=== PATIENT | female | born 1955 | race Caucasian/White ===

== ENCOUNTER 2022-03-01 10:05 | Outpatient (REF) | payer MEDICARE, SELFPAY ==
--- NOTE | ~2022-03-01 | XR_ITS ---
EXAMINATION: XR BILATERAL HAND/WRIST, BILATERAL ANKLE, CERVICAL SPINE AND LEFT KNEE CLINICAL INFORMATION: Pain. COMPARISON: None. TECHNIQUE: 2 views each ankle, 4 views each hand/wrist, 2 views left knee and 3 views cervical spine. FINDINGS: RIGHT ANKLE: The ankle mortise and subtalar joints are normal. No visible acute fracture, dislocation or subluxation seen. The soft tissues are normal. LEFT ANKLE: The ankle mortise and subtalar joints are normal. No visible acute fracture, dislocation or subluxation seen. LEFT HAND/WRIST: There is mild reduction in the proximal interphalangeal and distal interphalangeal joints of all digits without bony erosive changes, fracture or loose bodies. The metacarpophalangeal joint and carpometacarpal joints and the intercarpal joints are maintained normal. There is old ulnar styloid process fracture. RIGHT HAND/WRIST: There is mild loss of proximal interphalangeal and distal interphalangeal joints in all digits without fracture, bony erosive changes or spurring. The metacarpophalangeal, carpometacarpal and intercarpal joint spaces are maintained normal. The soft tissues are normal. LEFT KNEE: The tricompartment joint space is slightly reduced with no bony erosive changes, loose bodies, fracture or joint effusion. There is a small anterior superior patellar enthesophyte. CERVICAL SPINE: There is maintained cervical lordosis. There is loss of C4-C5, C5-C6, C6-C7 and C7-T1 disc heights with moderate ventral spondylosis and mild posterior spondylosis. No visible acute fracture or dislocation seen. The prevertebral soft tissues are normal. XR/XR hand wrist LT IMPRESSION: Unremarkable bilateral ankle exam. Mild degenerative osteoarthritic changes proximal interphalangeal and distal interphalangeal joints of both hands. Old ulnar styloid process fracture left hand/wrist. Mild degenerative changes left knee without fracture, loose bodies or joint effusion. Degenerative disc changes with ventral spondylosis C4-C5, C5-C6, C6-C7 and C7-T1 disc levels.
--- NOTE | ~2022-03-01 | XR_ITS ---
EXAMINATION: XR BILATERAL HAND/WRIST, BILATERAL ANKLE, CERVICAL SPINE AND LEFT KNEE CLINICAL INFORMATION: Pain. COMPARISON: None. TECHNIQUE: 2 views each ankle, 4 views each hand/wrist, 2 views left knee and 3 views cervical spine. FINDINGS: RIGHT ANKLE: The ankle mortise and subtalar joints are normal. No visible acute fracture, dislocation or subluxation seen. The soft tissues are normal. LEFT ANKLE: The ankle mortise and subtalar joints are normal. No visible acute fracture, dislocation or subluxation seen. LEFT HAND/WRIST: There is mild reduction in the proximal interphalangeal and distal interphalangeal joints of all digits without bony erosive changes, fracture or loose bodies. The metacarpophalangeal joint and carpometacarpal joints and the intercarpal joints are maintained normal. There is old ulnar styloid process fracture. RIGHT HAND/WRIST: There is mild loss of proximal interphalangeal and distal interphalangeal joints in all digits without fracture, bony erosive changes or spurring. The metacarpophalangeal, carpometacarpal and intercarpal joint spaces are maintained normal. The soft tissues are normal. LEFT KNEE: The tricompartment joint space is slightly reduced with no bony erosive changes, loose bodies, fracture or joint effusion. There is a small anterior superior patellar enthesophyte. CERVICAL SPINE: There is maintained cervical lordosis. There is loss of C4-C5, C5-C6, C6-C7 and C7-T1 disc heights with moderate ventral spondylosis and mild posterior spondylosis. No visible acute fracture or dislocation seen. The prevertebral soft tissues are normal. XR/XR cervical spine 2V IMPRESSION: Unremarkable bilateral ankle exam. Mild degenerative osteoarthritic changes proximal interphalangeal and distal interphalangeal joints of both hands. Old ulnar styloid process fracture left hand/wrist. Mild degenerative changes left knee without fracture, loose bodies or joint effusion. Degenerative disc changes with ventral spondylosis C4-C5, C5-C6, C6-C7 and C7-T1 disc levels.
--- NOTE | ~2022-03-01 | XR_ITS ---
EXAMINATION: XR BILATERAL HAND/WRIST, BILATERAL ANKLE, CERVICAL SPINE AND LEFT KNEE CLINICAL INFORMATION: Pain. COMPARISON: None. TECHNIQUE: 2 views each ankle, 4 views each hand/wrist, 2 views left knee and 3 views cervical spine. FINDINGS: RIGHT ANKLE: The ankle mortise and subtalar joints are normal. No visible acute fracture, dislocation or subluxation seen. The soft tissues are normal. LEFT ANKLE: The ankle mortise and subtalar joints are normal. No visible acute fracture, dislocation or subluxation seen. LEFT HAND/WRIST: There is mild reduction in the proximal interphalangeal and distal interphalangeal joints of all digits without bony erosive changes, fracture or loose bodies. The metacarpophalangeal joint and carpometacarpal joints and the intercarpal joints are maintained normal. There is old ulnar styloid process fracture. RIGHT HAND/WRIST: There is mild loss of proximal interphalangeal and distal interphalangeal joints in all digits without fracture, bony erosive changes or spurring. The metacarpophalangeal, carpometacarpal and intercarpal joint spaces are maintained normal. The soft tissues are normal. LEFT KNEE: The tricompartment joint space is slightly reduced with no bony erosive changes, loose bodies, fracture or joint effusion. There is a small anterior superior patellar enthesophyte. CERVICAL SPINE: There is maintained cervical lordosis. There is loss of C4-C5, C5-C6, C6-C7 and C7-T1 disc heights with moderate ventral spondylosis and mild posterior spondylosis. No visible acute fracture or dislocation seen. The prevertebral soft tissues are normal. XR/XR hand wrist RT IMPRESSION: Unremarkable bilateral ankle exam. Mild degenerative osteoarthritic changes proximal interphalangeal and distal interphalangeal joints of both hands. Old ulnar styloid process fracture left hand/wrist. Mild degenerative changes left knee without fracture, loose bodies or joint effusion. Degenerative disc changes with ventral spondylosis C4-C5, C5-C6, C6-C7 and C7-T1 disc levels.
[2022-03-01 10:28] LABS: MANUAL DIFF FLAG NO
[2022-03-01 11:01] LABS: Basophils Absolute Auto 0.1 X10*3/uL (0.0-0.2); Basophils Percent Auto 1.2 % (0-2); Eosinophils Absolute Auto 0.3 X10*3/uL (0.0-0.4); Eosinophils Percent Auto 4.1 % (0-4); Hematocrit 40.5 % (37.0-47.0); Hemoglobin 13.3 g/dl (12.0-16.0); Imm Gran Abs Auto 0.02 X10*3/uL (0.00-0.03); Imm Gran Pct Auto 0.2 % (0.0-0.4); Lymphocytes Absolute Auto 2.6 X10*3/uL (1.2-4.9); Lymphocytes Percent Auto 32.3 % (20-40); Mean Corpuscular HGB Conc 32.8 g/dl (31.0-35.0); Mean Corpuscular Hemoglobin 28.1 pg (27.0-33.0); Mean Corpuscular Volume 85.4 fL (80.0-98.0); Mean Platelet Volume 9.1 fL (9.4-12.3); Monocytes Absolute Auto 0.7 X10*3/uL (0.1-1.2); Monocytes Percent Auto 9.1 % (2-11); Neutrophils Absolute Auto 4.3 x10*3/uL (2.0-8.3); Neutrophils Percent Auto 53.1 % (45-73); Platelet Count 403 X10*3/uL (160-400); Red Blood Count 4.74 X10*6/uL (4.20-5.50); Red Cell Distribution Width 13.7 % (11.0-16.0)
[2022-03-01 11:28] LABS: Alanine Aminotransferase 26 U/L (0-31); Albumin Level 4.4 g/dL (3.5-5.0); Alkaline Phosphatase 98 U/L (39-117); Anion Gap 14 (12-20); Aspartate Amino Transferase 23 U/L (5-31); Bilirubin Total 0.2 mg/dL (0.0-1.0); Blood Urea Nitrogen 13 mg/dL (9-16); Calcium 9.5 mg/dL (8.4-10.2); Carbon Dioxide 29 mmol/L (22-29); Chloride 103 mmol/L (96-108); Cholesterol 213 mg/dL; Estimated Glomerular Filt Rate > 60; Glucose Random 115 mg/dL (60-115); HDL Cholesterol 55 mg/dL; LDL Cholesterol Calculated 113 mg/dl; Potassium 4.3 mmol/L (3.3-5.1); Sodium 142 mmol/L (135-145); Total Protein 7.6 g/dL (6.5-8.0); Triglycerides 228 mg/dL
[2022-03-01 11:50] LABS: Free T4 (Free Thyroxine) 0.87 ng/dL (0.71-1.85); Vitamin D 25-OH Total 50.7 ng/mL (>30)
[2022-03-01 11:53] LABS: Erythrocyte Sedimentation Rate 25 MM/HR (0-20)
[2022-03-01 12:11] LABS: Folate > 20.0 ng/mL (> or = 4.0); Vitamin B12 959 pg/mL (200-900)
== END 2022-03-01 10:06 | disposition home or self-care (01) ==
LOC: HO.XRAY 10:05
PROVIDERS: PCP Internal Medicine; Visit Provider Internal Medicine
DX: M25.50 Pain in unspecified joint (principal); E78.00 Pure hypercholesterolemia, unspecified
CPT/HCPCS: 36415; 72040; 73110; 73130; 73560; 73600; 80053; 80061; 82306; 82607; 82746; 84439; 84443; 85025; 85652

== ENCOUNTER 2022-03-23 12:47 | Outpatient (REF) | payer MEDICARE, SELFPAY ==
--- NOTE | ~2022-03-23 | MM_ITS ---
EXAMINATION: MM SCREENING DIGITAL BREAST TOMOSYNTHESIS, BILATERAL CLINICAL INFORMATION: Screening. Asymptomatic. The lifetime risk of breast cancer based on the Tyrer-Cuzick Model is 6%. COMPARISON: Mammography: 03/31/2019, 03/26/2018, 03/01/2017 TECHNIQUE: Digital breast tomosynthesis is performed in both the craniocaudal and mediolateral oblique views along with computer-aided detection (CAD). Synthesized 2D images are generated from the tomosynthesis. FINDINGS: There are scattered areas of fibroglandular density (ACR BI-RADS breast composition Category b). There are no significant masses, abnormal calcifications, or other abnormalities. Parenchymal pattern is similar to prior studies. There is no developing density or architectural abnormality. The axilla and skin contours are unremarkable. No significant changes. MM/MM tomosynthesis screening BI IMPRESSION: No mammographic evidence of malignancy. ASSESSMENT: BI-RADS 1: Negative RECOMMENDATION: Routine annual mammography screening. This patient's information was entered into a reminder system with a target due date for their next mammogram.
--- NOTE | ~2022-03-23 | MM_ITS ---
EXAMINATION: BONE DENSITOMETRY CLINICAL INDICATION: Age-related osteoporosis without current pathological fracture. COMPARISON: Previous BD dated 03/04/2019 and baseline BD dated 12/13/2007. TECHNIQUE: Using a [employer] DXA System (software version: 13.1) manufactured by [employer], dual-energy x-ray absorptiometry was performed of the lumbar spine and left hip. The images are of good technical quality. Summary results are attached. FINDINGS: AP SPINE L1-L4: Current: BMD 1.194 g/cm2, Z-score 1.4, T-score 0.1, normal, 5.8% decrease from previous, 8.8% increase from baseline (<5% change is not significant). Prior: BMD 1.268 g/cm2. Baseline: BMD 1.097 g/cm2. LEFT FEMUR, NECK: Current: BMD 0.707 g/cm2, Z-score -1.0, T-score -2.4, osteopenia. Prior: BMD 0.732 g/cm2. Baseline: BMD 0.712 g/cm2. LEFT FEMUR, TOTAL: Current: BMD 0.879 g/cm2, Z-score 0.1, T-score -1.0, normal, 1.3% decrease from previous, 2.6% increase from baseline (<5% change is not significant). Prior: BMD 0.891 g/cm2. Baseline: BMD 0.857 g/cm2. IDENTIFIED RISK FACTORS: Menopause. HISTORY OF FRACTURE: None listed. MEDICATIONS: Calcium supplements or multivitamin, vitamin D. MM/XR DEXA axial skeleton IMPRESSION: 1. DIAGNOSIS: Osteopenia based on the lowest T-score value of -2.4 in the femoral neck applying World Health Organization criteria. 2. 10-YEAR FRACTURE RISK PREDICTION, FRAX: Major osteoporotic fracture (clinical spine, forearm, hip or shoulder) 13.3%. Hip fracture 2.8%. 3. Treatment Recommendations: NOF guidelines recommend consideration for treatment in postmenopausal women and men age 50 and older presenting with the following: -A hip or vertebral (clinical or morphometric) fracture. -T-score less than or equal to -2.5 at the femoral neck or spine after appropriate evaluation to exclude secondary causes. -Low bone mass at the hip or spine and a 10-year fracture probability by FRAX of greater than or equal to 3% for hip fracture or greater than or equal to 20% for major osteoporotic fracture based on the [place] adapted WHO algorithm. 4. Other Recommendations: All treatment decisions require clinical judgment and consideration of individual patient factors, including patient preferences, comorbidities, previous drug use, risk factors not captured in the FRAX model (e.g. frailty, falls, vitamin D deficiency, increased bone turnover, interval significant decline in bone density) and possible under or overestimation of fracture risk by FRAX. Additional medical evaluation for secondary cause of low bone mineral density may be appropriate. FUTURE SCAN RECOMMENDATION: People with diagnosed cases of osteoporosis or at high risk for fracture should have regular bone mineral density tests. For patients eligible for Medicare, routine testing is allowed once every 2 years. The testing frequency can be increased to one year for patients who have rapidly progressing disease, those who are receiving or discontinuing medical therapy to restore bone mass, or have additional risk factors.
== END 2022-03-23 12:48 | disposition home or self-care (01) ==
LOC: HO.MAMMO 12:47
PROVIDERS: PCP Internal Medicine; Visit Provider Internal Medicine
DX: Z12.31 Encounter for screening mammogram for malignant neoplasm of breast (principal); Z13.820 Encounter for screening for osteoporosis; M81.0 Age-related osteoporosis without current pathological fracture; M85.80 Other specified disorders of bone density and structure, unspecified site; Z78.0 Asymptomatic menopausal state
CPT/HCPCS: 77063; 77067; 77080

== ENCOUNTER 2022-12-06 10:40 | Outpatient (REF) | payer MEDICARE, SELFPAY ==
[2022-12-07 19:43] LABS: HPV mRNA E6/E7 rflx Not Detected (Not Detected)
== END 2022-12-06 10:41 | disposition home or self-care (01) ==
LOC: HO.LNP 10:40
PROVIDERS: PCP Internal Medicine; Visit Provider Advanced Practice Midwife
DX: Z01.419 Encounter for gynecological examination (general) (routine) without abnormal findings (principal); Z11.51 Encounter for screening for human papillomavirus (HPV)
CPT/HCPCS: 87624; 88142; G0101

== ENCOUNTER 2022-12-15 08:34 | Outpatient (REF) | payer MEDICARE, SELFPAY ==
[2022-12-15 09:28] LABS: Estimated Average Glucose 108 mg/dL; Hemoglobin A1c % 5.4 %
[2022-12-15 09:48] LABS: Alanine Aminotransferase 29 U/L (0-31); Albumin Level 4.3 g/dL (3.5-5.0); Alkaline Phosphatase 113 U/L (39-117); Anion Gap 14 (12-20); Aspartate Amino Transferase 21 U/L (5-31); Bilirubin Total 0.6 mg/dL (0.0-1.0); Blood Urea Nitrogen 14 mg/dL (9-16); Calcium 9.5 mg/dL (8.4-10.2); Carbon Dioxide 26 mmol/L (22-29); Chloride 106 mmol/L (96-108); Cholesterol 212 mg/dL; Estimated Glomerular Filt Rate > 60; Glucose Random 98 mg/dL (60-115); HDL Cholesterol 53 mg/dL; LDL Cholesterol Calculated 126 mg/dl; Potassium 4.2 mmol/L (3.3-5.1); Sodium 142 mmol/L (135-145); Total Protein 7.2 g/dL (6.5-8.0); Triglycerides 169 mg/dL
== END 2022-12-15 08:35 | disposition home or self-care (01) ==
LOC: HO.LAB 08:34
PROVIDERS: PCP Internal Medicine; Visit Provider Internal Medicine
DX: R73.9 Hyperglycemia, unspecified (principal); E78.1 Pure hyperglyceridemia; E78.00 Pure hypercholesterolemia, unspecified
CPT/HCPCS: 36415; 80053; 80061; 83036

== ENCOUNTER 2022-12-25 06:21 | Day surgery (SDC) | payer MEDICARE, SELFPAY ==
--- NOTE | 2022-05-19 11:00 | HO.ANESPROP2 ---
HPI - Anesthesia Eval Consult details Narrative: 66yo F for Colonoscopy PMFSH Active Problems Active Problems: All Active Problems (Updated 03/07/22 @ 19:36 by Catalina Russo MD) Osteoarthritis (Acute) Cervical cancer screening (Acute) Tinnitus (Acute) Joint pain (Acute) Generalized anxiety disorder (Acute) Tubular adenoma of colon (Acute) Annual physical exam (Acute) Hyperhidrosis (Acute) Osteopenia (Acute) Breast cancer screening by mammogram (Acute) Hypercholesterolemia (Acute) Past Medical History Medical History (Updated 03/07/22 @ 19:36 by Catalina Russo MD) Allergic rhinitis Anxiety and depression Atrophic vaginitis History of GI bleed Hypercholesterolemia Osteopenia Family History Family History (Updated 02/28/22 @ 13:17 by Catalina Russo MD) Father Myocardial infarct Mother CVA (cerebral vascular accident), Onset Age: 82 Surgical History Surgical History (Updated 02/28/22 @ 13:03 by JESS Davis) No pertinent past surgical history Social History Social History (Updated 02/28/22 @ 13:18 by Catalina Russo MD) Housing: House Alcohol intake: current Alcohol intake frequency: a few times a week Patient Tobacco Use Status: Former Tobacco user Tobacco use type: Cigarette Years Smoked: stopped 1979 e-Cigarette/Vaping Use: Never Used Second Hand Smoke Exposure: No service: No Current occupational status: retired Current occupational exposures/hazards: No Meds Allergies Allergy/AdvReac Type Severity Reaction Status Date / Time ibuprofen Allergy Unknown Unknown Verified 02/28/22 12:56 naproxen Allergy Unknown Unknown Verified 02/28/22 12:56 12 Hour Nasal Relief [place] Allergy Unknown Unknown Uncoded 02/28/22 12:56 Voltaren Allergy Unknown Unknown Uncoded 02/28/22 12:56 Home Medications Medication Instructions Recorded Confirmed Last Taken Type cholecalciferol (vitamin D3) 25 25 mcg PO DAILY 02/24/21 02/28/22 Unknown History mcg (1,000 unit) capsule multivitamin 1 tab PO DAILY 02/24/21 02/28/22 Unknown History fexofenadine 180 mg tablet 180 mg PO DAILY 02/28/22 02/28/22 Unknown History (Cheryl Allergy) pseudoephedrine HCl 120 mg 120 mg PO Q12H 02/28/22 02/28/22 Unknown History tablet,extended release (Sudafed 12 Hour) Exam Exam Date and Time: May 19, 2022 1100 Pertinent Lab Results Pertinent Lab Results: Laboratory Tests 03/01/22 03/01/22 10:27 10:27 WBC 8.0 Hgb 13.3 Hct 40.5 Plt Count 403 H Sodium 142 Potassium 4.3 Chloride 103 Carbon Dioxide 29 BUN 13 Creatinine 0.78 Assessment and Plan Assessment Anesthesia Assessment: Chart Reviewed
--- NOTE | 2022-12-22 11:55 | HO.ANESPROP2 ---
HPI - Anesthesia Eval Consult details Narrative: 67yo F for Colonoscopy PMFSH Active Problems Active Problems: All Active Problems (Updated 12/18/22 @ 10:44 by Catalina Russo MD) Overweight (BMI 25.0-29.9) (Acute) Hypertriglyceridemia (Acute) Elevated blood sugar (Acute) Osteoarthritis (Acute) Cervical cancer screening (Acute) Tinnitus (Acute) Joint pain (Acute) Generalized anxiety disorder (Acute) Tubular adenoma of colon (Acute) Annual physical exam (Acute) Hyperhidrosis (Acute) Osteopenia (Acute) Hypercholesterolemia (Acute) Past Medical History Medical History Allergic rhinitis Anxiety and depression Atrophic vaginitis Breast cancer screening by mammogram History of GI bleed Hypercholesterolemia Osteopenia Family History Family History Father Myocardial infarct Mother CVA (cerebral vascular accident), Onset Age: 82 Surgical History Surgical History No pertinent past surgical history Social History Social History Household Members Other:: Housing: House Alcohol intake: current Alcohol intake frequency: a few times a week Patient Tobacco Use Status: Former Tobacco user Tobacco use type: Cigarette Years Smoked: stopped 1979 e-Cigarette/Vaping Use: Never Used Second Hand Smoke Exposure: No Are you DNR?: No Advance Directives: No Advance Directives Information Provided: Yes Nutrition Risks: No Nutritional Risk service: No Current occupational status: retired Current occupational exposures/hazards: No Sexual orientation: Straight/Heterosexual Gender identity: Female Cognitive needs: No Hearing needs: No Vision needs: No Meds Allergies Allergy/AdvReac Type Severity Reaction Status Date / Time ibuprofen Allergy Unknown Unknown Verified 12/25/22 07:00 naproxen Allergy Unknown Unknown Verified 12/25/22 07:00 12 Hour Nasal Relief [place] Allergy Unknown Unknown Uncoded 12/25/22 07:00 Voltaren Allergy Unknown Unknown Uncoded 12/25/22 07:00 Home Medications Medication Instructions Recorded Confirmed Last Taken Type cholecalciferol (vitamin D3) 25 25 mcg PO DAILY 02/24/21 12/25/22 Unknown History mcg (1,000 unit) capsule multivitamin 1 tab PO DAILY 02/24/21 12/25/22 Unknown History fexofenadine 180 mg tablet 180 mg PO DAILY 02/28/22 12/25/22 Unknown History (Cheryl Allergy) pseudoephedrine HCl 120 mg 120 mg PO Q12H 02/28/22 12/25/22 Unknown History tablet,extended release (Sudafed 12 Hour) Exam Exam Date and Time: December 22, 2022 1155 Assessment and Plan Assessment Anesthesia Assessment: Chart Reviewed
[2022-12-25 06:43] VITALS: BMI 28.3
[2022-12-25] MEDS: Lactated Ringers 1,000 ML 100 ML IVCONT (06:50)
[2022-12-25 07:01] VITALS: BP 134/84; PULSE 95; RESP 18; TEMP 36.6; O2SAT 96
--- NOTE | 2022-12-25 07:58 | HO.ANESPROP2 ---
HPI - Anesthesia Eval Consult details Narrative: screening ho polyp PMFSH Active Problems Active Problems: All Active Problems (Updated 12/18/22 @ 10:44 by Catalina Russo MD) Overweight (BMI 25.0-29.9) (Acute) Hypertriglyceridemia (Acute) Elevated blood sugar (Acute) Osteoarthritis (Acute) Cervical cancer screening (Acute) Tinnitus (Acute) Joint pain (Acute) Generalized anxiety disorder (Acute) Tubular adenoma of colon (Acute) Annual physical exam (Acute) Hyperhidrosis (Acute) Osteopenia (Acute) Hypercholesterolemia (Acute) Past Medical History Medical History Allergic rhinitis Anxiety and depression Atrophic vaginitis Breast cancer screening by mammogram History of GI bleed Hypercholesterolemia Osteopenia Family History Family History Father Myocardial infarct Mother CVA (cerebral vascular accident), Onset Age: 82 Family history of problems with anesthesia: No Surgical History Surgical History No pertinent past surgical history History of Problems with Anesthesia: No Social History Social History Household Members Other:: Housing: House Alcohol intake: current Alcohol intake frequency: a few times a week Patient Tobacco Use Status: Former Tobacco user Tobacco use type: Cigarette Years Smoked: stopped 1979 e-Cigarette/Vaping Use: Never Used Second Hand Smoke Exposure: No Are you DNR?: No Advance Directives: No Advance Directives Information Provided: Yes Nutrition Risks: No Nutritional Risk service: No Current occupational status: retired Current occupational exposures/hazards: No Sexual orientation: Straight/Heterosexual Gender identity: Female Cognitive needs: No Hearing needs: No Vision needs: No Meds Allergies Allergy/AdvReac Type Severity Reaction Status Date / Time ibuprofen Allergy Unknown Unknown Verified 12/25/22 07:00 naproxen Allergy Unknown Unknown Verified 12/25/22 07:00 12 Hour Nasal Relief [place] Allergy Unknown Unknown Uncoded 12/25/22 07:00 Voltaren Allergy Unknown Unknown Uncoded 12/25/22 07:00 Active Medications: Current Medications Lactated Ringer's (Lr) 1,000 mls @ 100 mls/hr IVCONT .Q10H ZOILA Last Admin: 12/25/22 06:50 Dose: 100 mls/hr Sodium Biphosphate/Sodium Phosphate (Sodium Phosphate,[place]-Dibasic 133 Ml Enema) 133 ml [place] ONCE PRN PRN Reason: Poor Colonoscopy Prep Results Home Medications Medication Instructions Recorded Confirmed Last Taken Type cholecalciferol (vitamin D3) 25 25 mcg PO DAILY 02/24/21 12/25/22 Unknown History mcg (1,000 unit) capsule multivitamin 1 tab PO DAILY 02/24/21 12/25/22 Unknown History fexofenadine 180 mg tablet 180 mg PO DAILY 02/28/22 12/25/22 Unknown History (Cheryl Allergy) pseudoephedrine HCl 120 mg 120 mg PO Q12H 02/28/22 12/25/22 Unknown History tablet,extended release (Sudafed 12 Hour) Exam Exam Date and Time: December 25, 2022 5198 Height,Weight and Vital Signs: Height 5 ft 4 in Weight 74.843 kg Last Vital Signs Temp 97.9 F 12/25/22 07:01 Pulse 95 12/25/22 07:01 Resp 18 12/25/22 07:01 BP 134/84 12/25/22 07:01 Pulse Ox 96 12/25/22 07:01 O2 Del Method Room Air 12/25/22 07:01 Airway Mallampati Class: I TM Dist: >3cm Neck ROM: Full Loose/Missing/Broken Teeth: No Heart: rr Lungs: cta Assessment and Plan Assessment Anesthesia Assessment: Anesthesia Plan Discussed and Chart Reviewed Final Anesthetic Review Family History of Problems with Anesthesia: No History of Problems with Anesthesia: No NPO: Yes ASA Class: II Final Preanesthetic Review: No Changes in Pt Med Stat, Meds/Allgs Chart Reviewed, Consent Obtained/Reviewed and Anes Risks/Benef Reviewed Patient Risk: Low Procedure Risk: Low Anesthetic Plan Anesthetic Plan: MAC: Disposition: Standard PACU
[2022-12-25 08:33] VITALS: BP 115/65; PULSE 80; RESP 18; TEMP 36.3; O2SAT 93
--- NOTE | 2022-12-25 08:35 | P.BOP_ITS ---
Brief Operative Note Date of Service: 12/25/22 Pre-op diagnosis: Screening Post-op diagnosis: other (Polyps) Procedure: Colonoscopy to the cecum and TI with bx/removal of polyps Surgeon: Jr Palomino Anesthesia: MAC Was an Heavy Equipment Engine Mechanic used for this Procedure?: No Estimated blood loss (mL): 2.0 Pathology: other (A. Ascending colon polyps) Condition: stable Disposition: PACU
[2022-12-25 08:48] VITALS: BP 129/77; PULSE 75; RESP 16; TEMP 36.6; O2SAT 97
--- NOTE | 2022-12-25 09:35 | OP_ITS ---
DATE OF SERVICE: 12/25/2022 SURGEON: Jr Palomino MD INDICATIONS: The patient presents for evaluation of colorectal cancer screening and personal history of tubular adenomas of the colon. Full consent has been obtained from her for this, including risks of bleeding and perforation. PREOPERATIVE DIAGNOSIS: Colorectal cancer screening and personal history of tubular adenomas of the colon. POSTOPERATIVE DIAGNOSIS: PROCEDURE PERFORMED: Colonoscopy to cecum and terminal ileum with biopsy and removal of polyps. ESTIMATED BLOOD LOSS: COMPLICATIONS: ANESTHESIA: Monitored anesthesia care. ASSISTANTS: SPECIMENS: POSTOPERATIVE DIAGNOSES: Colorectal cancer screening and personal history of tubular adenomas of the colon, colon polyps, diverticulosis, and internal hemorrhoids. DESCRIPTION OF PROCEDURE: The patient was placed in the left lateral decubitus position the digital rectal exam revealed no abnormalities. The Olympus video pediatric colonoscope was entered into the rectum and advanced easily to the cecum. Once in the cecum I did identify normal-appearing cecal pouch with appendiceal orifice and a normal-appearing ileocecal valve. The terminal ileum was cannulated and appeared normal. The scope was withdrawn back in the colon. The entire cecum and ileocecal valve appeared normal. The scope was slowly withdrawn assessing all mucosal surfaces carefully. Preparation was excellent. In the proximal ascending colon were 2 flat less than 5 mm polyps, which were each biopsied and completely removed with a cold biopsy forceps. I did not visualize any other polyps, colitis, nor angiodysplasia. There was a mild amount of sigmoid diverticulosis. In the rectum, scope was retroflexed visualizing internal hemorrhoids, but no other pathology. The rectal mucosa appeared normal. Scope was straightened and withdrawn from the patient. She tolerated the procedure well and was returned to the recovery area in stable condition. IMPRESSION: 1. Small colon polyps. 2. Diverticulosis. 3. Internal hemorrhoids. PLAN: The results of the biopsies will be checked. I would recommend a repeat colonoscopy in 5 years for further screening. She will otherwise see me on a p.r.n. basis. MD LEE Roque/ROHAN / [id number] MTDD
== END 2022-12-25 09:16 | disposition home or self-care (01) ==
PROVIDERS: PCP Internal Medicine; Visit Provider Internal Medicine
PROC: 0DJD8ZZ Inspection of Lower Intestinal Tract, Via Natural or Artificial Opening Endoscopic (ICD-10-PCS; CPT 45378; principal; 2022-12-25 07:30)
DX: Z12.11 Encounter for screening for malignant neoplasm of colon (principal); Z86.010 Personal history of colon polyps; D12.2 Benign neoplasm of ascending colon; K57.30 Diverticulosis of large intestine without perforation or abscess without bleeding; K64.8 Other hemorrhoids; E78.00 Pure hypercholesterolemia, unspecified; F41.1 Generalized anxiety disorder; M47.9 Spondylosis, unspecified; M15.9 Polyosteoarthritis, unspecified; M85.80 Other specified disorders of bone density and structure, unspecified site; Z79.899 Other long term (current) drug therapy; Z88.8 Allergy status to other drugs, medicaments and biological substances; Z87.891 Personal history of nicotine dependence
CPT/HCPCS: 45380; 88305

== ENCOUNTER 2023-02-09 07:31 | Outpatient (REF) | payer MEDICARE, SELFPAY ==
[2023-02-09 07:43] LABS: MANUAL DIFF FLAG NO
[2023-02-09 08:24] LABS: Basophils Absolute Auto 0.1 X10*3/uL (0.0-0.2); Basophils Percent Auto 1.2 % (0-2); Eosinophils Absolute Auto 0.2 X10*3/uL (0.0-0.4); Eosinophils Percent Auto 3.4 % (0-4); Hematocrit 40.9 % (37.0-47.0); Hemoglobin 13.5 g/dl (12.0-16.0); Imm Gran Abs Auto 0.01 X10*3/uL (0.00-0.03); Imm Gran Pct Auto 0.1 % (0.0-0.4); Lymphocytes Absolute Auto 2.3 X10*3/uL (1.2-4.9); Lymphocytes Percent Auto 34.5 % (20-40); Mean Corpuscular Hemoglobin 28.2 pg (27.0-33.0); Mean Corpuscular Volume 85.4 fL (80.0-98.0); Monocytes Absolute Auto 0.6 X10*3/uL (0.1-1.2); Monocytes Percent Auto 9.1 % (2-11); Neutrophils Absolute Auto 3.5 x10*3/uL (2.0-8.3); Neutrophils Percent Auto 51.7 % (45-73); Platelet Count 384 X10*3/uL (160-400); Red Blood Count 4.79 X10*6/uL (4.20-5.50); Red Cell Distribution Width 13.4 % (11.0-16.0); White Blood Count 6.7 X10*3/uL (4.8-10.8)
[2023-02-09 09:02] LABS: Alanine Aminotransferase 21 U/L (0-31); Albumin Level 4.2 g/dL (3.5-5.0); Alkaline Phosphatase 100 U/L (39-117); Anion Gap 19 (12-20); Aspartate Amino Transferase 20 U/L (5-31); Bilirubin Total 0.3 mg/dL (0.0-1.0); Blood Urea Nitrogen 12 mg/dL (9-16); Calcium 9.6 mg/dL (8.4-10.2); Carbon Dioxide 22 mmol/L (22-29); Chloride 105 mmol/L (96-108); Cholesterol 207 mg/dL; Estimated Glomerular Filt Rate > 60; Glucose Random 92 mg/dL (60-115); HDL Cholesterol 54 mg/dL; LDL Cholesterol Calculated 131 mg/dl; Potassium 3.8 mmol/L (3.3-5.1); Sodium 142 mmol/L (135-145); Total Protein 7.5 g/dL (6.5-8.0); Triglycerides 111 mg/dL
[2023-02-09 09:15] LABS: HBS Num1 0.22 mIU/mL (0-7.99); HBc Num1 0.08 S/CO (0.00-0.79); HBsAGNum1 0.36 S/CO (0.00-0.99); Hepatitis B Core Antibody Nonreactive (Nonreactive); Hepatitis B Surface Antigen Negative (Negative); ~HepC Num1 0.07 S/CO (0.00-0.79); ~Hepatitis B Surface Antibody NONREACTIVE (Nonreactive); ~Hepatitis C Antibody Nonreactive (Nonreactive)
[2023-02-09 09:21] LABS: Free T4 (Free Thyroxine) 0.84 ng/dL (0.71-1.85); Thyroid Stimulating Hormone 1.39 uIU/mL (0.32-4.0)
[2023-02-09 09:27] LABS: Folate 15.4 ng/mL (> or = 4.0); Vitamin B12 1102 pg/mL (200-900)
[2023-02-09 13:59] LABS: Appearance Urine Clear; Color Urine Yellow; Glucose Urine UA Negative (Negative); Leukocyte Esterase Urine Small (1+) (Negative); Nitrite Urine Negative (Negative); PH 5.5 (5.0-9.0); UMIC TRIGGER UA YES; Urine Blood Negative (Negative); Urine Ketones Negative (Negative); Urine Protein Negative (Neg-Trace)
[2023-02-09 14:16] LABS: Bacteria Urine None Seen (None Seen); Hyaline Casts Urine 0-2 /LPF (0-2); RBC Urine 0-2 /HPF (0-2); Squamous Epithelial Cell Urine 0-2 /HPF (0-2); WBC Urine 0-5 /HPF (0-5)
== END 2023-02-09 07:32 | disposition home or self-care (01) ==
LOC: HO.LAB 07:31
PROVIDERS: PCP Internal Medicine; Visit Provider Internal Medicine
DX: E78.1 Pure hyperglyceridemia (principal); R73.9 Hyperglycemia, unspecified; E78.00 Pure hypercholesterolemia, unspecified; Z11.59 Encounter for screening for other viral diseases; Z72.89 Other problems related to lifestyle
CPT/HCPCS: 36415; 80053; 80061; 81001; 82607; 82746; 84439; 84443; 85025; 86704; 86706; 86803; 87340

== ENCOUNTER 2023-02-13 13:36 | Outpatient (AMB) | payer MEDICARE, SELFPAY ==
[2023-02-13 13:44] VITALS: BP 138/76; PULSE 84; O2SAT 98; BMI 26.6
--- NOTE | 2023-02-13 13:44 | AM.OFFVISMDC ---
Intake Vital Signs 02/13/23 13:44 Height 5 ft 4 in Weight 155 lb BMI 26.6 BP 138/76 Blood Pressure Location Lt brachial Position Sitting Pulse 84 Pulse Source Pulse Oximeter Pulse Oximetry (%) 98 Oxygen Delivery Method Room Air Intake Visit Reasons: AWV [id number] Allergies ibuprofen Allergy (Unknown, Verified 02/13/23 13:44) Unknown naproxen Allergy (Unknown, Verified 02/13/23 13:44) Unknown 12 Hour Nasal Relief [place] Allergy (Unknown, Uncoded 02/13/23 13:44) Unknown Voltaren Allergy (Unknown, Uncoded 02/13/23 13:44) Unknown Medication List - Last Reconciled 02/13/23 by Catalina Russo MD bupropion HCl 150 mg PO DAILY cholecalciferol (vitamin D3) 25 mcg PO DAILY fexofenadine (Cheryl Allergy) 180 mg PO DAILY multivitamin 1 tab PO DAILY HPI AWV [id number] HPI Details 67-year-old overweight female with hypertriglyceridemia, elevated blood sugar, generalized anxiety disorder coming in for physical exam. Last seen 12/18/2022. Blood work was requested colonoscopy up-to-date had it in December 2022 mammogram due in March bone density is up-to-date. [facility] Medical History (Updated 02/13/23 @ 13:51 by Catalina Russo MD) Allergic rhinitis Annual physical exam Anxiety and depression Atrophic vaginitis Breast cancer screening by mammogram History of GI bleed Hypercholesterolemia Osteopenia Tubular adenoma of colon Surgical History No pertinent past surgical history Family History Father Myocardial infarct Mother CVA (cerebral vascular accident), Onset Age: 82 Social History (Updated 02/13/23 @ 14:12 by Catalina Russo MD) Household Members Other:: Housing: House Alcohol intake: current Alcohol intake frequency: a few times a week Patient Tobacco Use Status: Former Tobacco user Tobacco use type: Cigarette Years Smoked: stopped 1979 e-Cigarette/Vaping Use: Never Used Second Hand Smoke Exposure: No service: No Current occupational status: retired Current occupational exposures/hazards: No Sexual orientation: Straight/Heterosexual Gender identity: Female Cognitive needs: No Hearing needs: No Vision needs: No Questionnaire Medicare Wellness Checkup [age] What gender do you identify with?: female During the past 4 weeks, how much have you been bothered by emotional problems such as feeling anxious, depressed, irritable, sad or downhearted, and blue?: not at all During the past 4 weeks, has your physical & emotional health limited your social activities with family, friends, neighbors, or groups?: not at all During the past 4 weeks, how much bodily pain have you generally had?: moderate pain During the past 4 weeks, was someone available to help you if you needed & wanted help?: yes, some During the past 4 weeks, what was the hardest physical activity you could do for at least 2 minutes?: moderate Can you get to places out of walking distance without help? (For eg., can you travel alone on buses, taxis or drive your car?): Yes Can you go shopping for groceries or clothes without someone's help?: Yes Can you prepare your own meals?: Yes Can you do your housework without help?: Yes Because of any health problems, do you need the help of another person with your personal care needs such as eating, bathing, dressing or getting around the house?: No Can you handle your own money without help?: Yes During the past 4 weeks, how would you rate your health in general?: very good During the past 4 weeks how have things been going for you?: pretty well Are you having difficulties driving your car?: no Do you always fasten your seat belt when you are in a car?: yes, usually During past 4 weeks, have you been bothered by the following: never: Falling or dizzy when standing up, Sexual problems?, Trouble eating well? and Problems using the telephone? and sometimes: Teeth or denture problems? and Tiredness or fatigue? Have you fallen 2 or more times in the past year?: No Are you afraid of falling?: No Are you a smoker?: no During the past 4 weeks, how many drinks of wine, beer, or other alcoholic beverages did you have?: 6-9 drinks per week Do you exercise for about 20 minutes 3 or more times a week?: yes, all the time Have you been given information to help with the following?: no: Hazards in your house that might hurt you? and no: Keeping track of your medications? How often do you have trouble taking medicines the way you have been told to take them?: I always take medicine as prescribed How confident are you that you can control & manage most of your health problems?: very confident What is your race?: White PHQ-9 Over the last 2 weeks, how often have you been bothered by any of the following problems? 1. Little interest or pleasure in doing things: not at all 2. Feeling down, depressed, or hopeless: more than half the days 3. Trouble falling or staying asleep, or sleeping too much: more than half the days 4. Feeling tired or having little energy: not at all 5. Poor appetite or overeating: not at all 6. Feeling bad about yourself - or that you are a failure or have let yourself or your family down: not at all 7. Trouble concentrating on things, such as reading the newspaper or watching television: not at all 8. Moving or speaking so slowly that other people could have noticed. Or the opposite - being so fidgety or restless that you have been moving around a lot more than usual: not at all 9. Thoughts that you would be better off or of hurting yourself in some way: not at all Total score: 4 Depression Screening Interpretation: Positive Source: Developed by Drs. Jr Mascorro, Licha Chery, Cristobal Rhodes and colleagues, with an educational jun from [employer]. Thrive Questionnaire Date Thrive assessed: 02/13/23 I am a: Patient What is your living situation today?: I have a steady place to live Within the past 12 months, did the food you bought not last and you didn't have the money to get more?: Never true Within the past 12 months, did you worry whether your food would run out before you got money to buy more?: Never true Do you have trouble paying for medicines?: No Do you have trouble getting transportation to medical appointments?: No Do you have trouble paying your heating and electricity bill?: No Do you have trouble taking care of your child, family member or friend?: No Do you have trouble with day-to-day activities such as bathing, preparing meals, shopping, managing finances, etc.?: No Are you currently unemployed and looking for a job?: No Are you interested in more education?: No Currently or been in a relationship where the following occur: no concerns reported SARITA-7 AMB Questionnaire SARITA-7 Date SARITA - 7 assessed: 12/18/22 Source: Developed by Drs. Jr Mascorro, Licha Chery, Cristobal Rhodes and colleagues, with an educational jun from [employer]. Review of Systems Const Denies poor appetite and Denies weakness Eyes Denies no additional complaints ENT Reports Normal hearing present, Denies dizziness, Denies nasal congestion, Denies tinnitus and Denies sore throat Card Denies chest pain, Denies syncope, Denies rapid heart rate and Denies dyspnea Resp Denies cough and Denies dyspnea GI Denies change in stool character, Reports constipation, Denies diarrhea, Denies nausea and Denies vomiting Denies urinary frequency, Denies difficulty voiding and Denies dysuria Neuro Reports Normal hearing present, Denies confusion, Denies dizziness, Denies syncope and Denies weakness Psych Denies confusion Physical Exam Vital Signs: Last Vital Signs Pulse 84 02/13/23 13:44 BP 138/76 02/13/23 13:44 Pulse Ox 98 02/13/23 13:44 Oxygen Delivery Method Room Air 02/13/23 13:44 BMI result Body Mass Index 26.6 Const General: No confusion Orientation/consciousness: No confusion HEENT Head: Yes normocephalic Ears: external ears normal and TM's normal bilaterally Face and sinus: Yes normal facial exam Mouth: moist mucous membranes Throat: Yes tonsils normal Eyes Conjunctivae: conjunctivae normal Pupils: Equal, round and reactive pupils present and Pupil accommodation reflex normal Direct Ophthalmoscopy: normal light reflex Neck Neck: No lymphadenopathy Thyroid: Thyroid normal Chest Chest palpation & inspection: normal inspection of the chest Resp Effort & Inspection: normal respiratory effort and no audible wheezes Auscultation: clear to auscultation bilaterally, no crackles, no wheezes and lung sounds not diminished Cardio Rate: regular rate Rhythm: regular rhythm Peripheral pulses: radial pulses present and dorsalis pedis present GI Other: COLON TEST 2022 Palpation (GI): no masses Auscultation: normal bowel sounds and normoactive bowel sounds Rectal Exam - Female: deferred Skin General skin exam: no rashes or lesions noted Rashes: no rashes Neuro General: No confusion Cranial nerves: Yes Equal, round and reactive pupils present and Yes Normal hearing present Cognition (Neuro): normal cognition Gait exam (Neuro): Normal gait present Motor exam (neuro): 5/5 motor strength present throughout Deep tendon reflexes (DTR's): Right brachioradialis reflex intensity grade: 2+, Left brachioradialis reflex intensity grade: 2+, Right patellar reflex intensity grade: 2+ and Left patellar reflex intensity grade: 2+ Extrem General: No edema Assessment & Plan Assessment & Plan (1) Medicare annual wellness visit, initial: Code(s): Z00.00 - Encounter for general adult medical examination without abnormal findings (2) Overweight (BMI 25.0-29.9): Code(s): E66.3 - Overweight Plan: Diet and exercise (3) Generalized anxiety disorder: Code(s): F41.1 - Generalized anxiety disorder Plan: Continue with present medication (4) Hypercholesterolemia: Code(s): E78.00 - Pure hypercholesterolemia, unspecified Plan: Avoid fried foods, chicken skin, eggs, butter margarine, pastries and meat. Be it pork or beef they have a lot of cholesterol LDL goal of less than 130 and triglyceride of less than 150 (5) Osteopenia: Code(s): M85.80 - Other specified disorders of bone density and structure, unspecified site Plan: Keep active, calcium rich foods vitamin-D (6) Hypercholesterolemia: Code(s): E78.00 - Pure hypercholesterolemia, unspecified Plan: Avoid fried foods, chicken skin, eggs, butter margarine, pastries and meat. Be it pork or beef they have a lot of cholesterol LDL goal of less than 130 and triglyceride of less than 150 Medications: Refilled bupropion HCl 150 mg PO DAILY 90 tabs 2RF F41.1 - Generalized anxiety disorder Quality Reporting (2019) Depression/Bipolar (159/160/161/177) PHQ-9: Total score: 4 Coding Level of Care Code Medicare First (G0438) Diagnoses Medicare annual wellness visit, initial Z00.00 Overweight (BMI 25.0-29.9) E66.3 Generalized anxiety disorder F41.1 Hypercholesterolemia E78.00 Osteopenia M85.80
== END 2023-02-13 14:35 | disposition home or self-care (01) ==
PROVIDERS: PCP Internal Medicine; Visit Provider Internal Medicine
DX: Z00.00 Encounter for general adult medical examination without abnormal findings (principal); E66.3 Overweight; F41.1 Generalized anxiety disorder; E78.00 Pure hypercholesterolemia, unspecified; M85.80 Other specified disorders of bone density and structure, unspecified site
CPT/HCPCS: G0438

== ENCOUNTER 2023-03-29 12:57 | Outpatient (REF) | payer MEDICARE, SELFPAY | END 2023-03-29 12:58 | disposition home or self-care (01) | LOC: HO.MAMMO 12:57 | PROVIDERS: PCP Internal Medicine; Visit Provider Internal Medicine | DX: Z12.31 Encounter for screening mammogram for malignant neoplasm of breast (principal) | CPT/HCPCS: 77063; 77067 ==

== ENCOUNTER → 2023-03-29 13:15 | Outpatient (BNV) | payer MEDICARE, SELFPAY | PROVIDERS: PCP Internal Medicine; Visit Provider Radiology Diagnostic Radiology | DX: Z12.31 Encounter for screening mammogram for malignant neoplasm of breast (principal) | CPT/HCPCS: 77063; 77067 ==

== ENCOUNTER 2023-12-25 10:37 | Outpatient (AMB) | payer MEDICARE, SELFPAY ==
[2023-12-25 10:42] VITALS: BP 144/78; PULSE 82; O2SAT 98; BMI 26.6
--- NOTE | 2023-12-25 10:42 | A.OFFPC_ITS ---
Vital Signs 12/25/23 10:42 Height 5 ft 4 in Weight 155 lb BMI 26.6 BP 144/78 H Blood Pressure Location Lt brachial Position Sitting Pulse 82 Pulse Source Pulse Oximeter Pulse Oximetry (%) 98 Oxygen Delivery Method Room Air Intake Visit Reasons: 6 MONTH F/U Allergies ibuprofen Allergy (Unknown, Verified 12/25/23 10:42) Unknown naproxen Allergy (Unknown, Verified 12/25/23 10:42) Unknown 12 Hour Nasal Relief [place] Allergy (Unknown, Uncoded 12/25/23 10:42) Unknown Voltaren Allergy (Unknown, Uncoded 12/25/23 10:42) Unknown Medication List - Last Reconciled 12/25/23 by Catalina Russo MD acetaminophen ER (Tylenol Arthritis Pain) 1,300 mg PO Q12H alum-mag hydroxide-simeth 400-400-40 mg/5 mL (Mylanta Maximum Strength) 5 mL PO QID PRN bupropion HCl XL 150 mg PO DAILY cholecalciferol (vitamin D3) 25 mcg PO DAILY fexofenadine (Cheryl Allergy) 180 mg PO DAILY multivitamin 1 tab PO DAILY pseudoephedrine HCl ER (Sudafed 12 Hour) 120 mg PO Q12H Tobacco use date assessed: 12/25/23 Fall risk assessment: No Falls in past year Last assessed Fall Risk: 12/25/23 Dental Screening Dental Screen Date: 12/25/23 Did you have a dental visit in the last 12 months?: Yes Did you have a dental problem in the last 6 months where you did not have access to dental care?: No Was dental information given to patient?: Patient has dentist HPI 6 MONTH F/U HPI Details 68-year-old overweight female with a his tory of generalized anxiety disorder and osteopenia last seen for annual wellness in 03/04/2023. Patient's colonoscopy is up-to-date 01/02/2023 mammogram 04/04/2023 bone density 04/04/2022. Patient is here for follow-up. Blood work last done in 02/01/2023 . lower ab pain, no dysuria, frequency, mnom Bowel/bladder symptoms. [facility] Medical History (Updated 12/25/23 @ 10:52 by Catalina Russo MD) Hypercholesterolemia Tubular adenoma of colon Annual physical exam Osteopenia Breast cancer screening by mammogram Anxiety and depression Atrophic vaginitis History of GI bleed Allergic rhinitis Surgical History No pertinent past surgical history Family History Father Myocardial infarct Mother CVA (cerebral vascular accident), Onset Age: 82 Social History (Updated 02/13/23 @ 14:12 by Catalina Russo MD) Household Members Other:: Housing: House Alcohol intake: current Alcohol intake frequency: a few times a week Patient Tobacco Use Status: Former Tobacco user Tobacco use type: Cigarette Years Smoked: stopped 1979 e-Cigarette/Vaping Use: Never Used Second Hand Smoke Exposure: No service: No Current occupational status: retired Current occupational exposures/hazards: No Sexual orientation: Straight/Heterosexual Gender identity: Female Cognitive needs: No Hearing needs: No Vision needs: No Questionnaire PHQ-9 Over the last 2 weeks, how often have you been bothered by any of the following problems? 1. Little interest or pleasure in doing things: not at all 2. Feeling down, depressed, or hopeless: more than half the days 3. Trouble falling or staying asleep, or sleeping too much: more than half the days 4. Feeling tired or having little energy: not at all 5. Poor appetite or overeating: not at all 6. Feeling bad about yourself - or that you are a failure or have let yourself or your family down: not at all 7. Trouble concentrating on things, such as reading the newspaper or watching television: not at all 8. Moving or speaking so slowly that other people could have noticed. Or the opposite - being so fidgety or restless that you have been moving around a lot more than usual: not at all 9. Thoughts that you would be better off or of hurting yourself in some way: not at all Total score: 4 Depression Screening Interpretation: Positive Depression Screening Done: Yes Source: Developed by Drs. Jr Mascorro, Licha Chery, Cristobal Rhodes and colleagues, with an educational jun from [employer]. Thrive Questionnaire Date Thrive assessed: 12/25/23 I am a: Patient What is your living situation today?: I have a steady place to live Within the past 12 months, did the food you bought not last and you didn't have the money to get more?: Never true Within the past 12 months, did you worry whether your food would run out before you got money to buy more?: Never true Do you have trouble paying for medicines?: No Do you have trouble getting transportation to medical appointments?: No Do you have trouble paying your heating and electricity bill?: No Do you have trouble taking care of your child, family member or friend?: No Do you have trouble with day-to-day activities such as bathing, preparing meals, shopping, managing finances, etc.?: No Are you currently unemployed and looking for a job?: No Are you interested in more education?: No Currently or been in a relationship where the following occur: no concerns reported THRIVE Score: 0 AUDIT C Alcohol Use Questionnaire (AUDIT-C) 1. How often do you have a drink containing alcohol?: 2-3 times a week 2. How many drinks containing alcohol do you have on a typical day when you are drinking?: 1 or 2 3. How often do you have six or more drinks on one occasion?: Never Total Score: 3 SARITA-7 AMB Questionnaire SARITA-7 Date SARITA - 7 assessed: 12/25/23 Feeling nervous, anxious, or on edge: 0 = Not at all Not being able to stop or control worryin = Not at all Worrying too much about different things: 0 = Not at all Trouble relaxin = Not at all Being so restless that it is hard to sit still: 0 = Not at all Becoming easily annoyed or irritable: 0 = Not at all Feeling afraid as if something awful might happen: 0 = Not at all Total SARITA-7 score (0-4 normal; 5-9 mild; 10-14 moderate; 15-21 severe): 0 Source: Developed by Drs. Jr Mascorro, Licha Chery, Cristobal Rhodes and colleagues, with an educational jun from [employer]. Physical exam (Primary Care) Vital Signs: Oxygen Delivery Method Room Air 12/25/23 10:42 BMI result Body Mass Index 26.6 Tobacco/Smoking Status: Tobacco use Status Tobacco use date assessed 12/25/23 12/25/23 10:49 Patient Tobacco Use Status Former Tobacco user 12/25/23 10:49 Tobacco use type Cigarette 12/25/23 10:49 e-Cigarette/Vaping Use Never Used 12/25/23 10:49 PHQ-9: PHQ-9 Score PHQ-9: Total score 4 12/25/23 10:49 Depression Screening Interpretation: Positive Thrive Assessment: Date of Thrive Assessment Date Thrive assessed 12/25/23 12/25/23 10:49 Currently or been in a relationship where the following occur: no concerns reported Const General: alert; No acute distress Eyes Conjunctivae: conjunctivae normal Resp Auscultation: clear to auscultation bilaterally Cardio Rate: regular rate Rhythm: regular rhythm GI Inspection: Yes normal to inspection Extrem General: Yes normal to inspection and No edema Assessment and Plan Assessment & Plan (1) Overweight (BMI 25.0-29.9): Code(s): E66.3 - Overweight Plan: Diet and exercise (2) Hypercholesterolemia: Code(s): E78.00 - Pure hypercholesterolemia, unspecified Plan: Avoid fried foods, chicken skin, eggs, butter margarine, pastries and meat. Be it pork or beef they have a lot of cholesterol LDL goal of less than 130 and triglyceride of less than 150 (3) Osteopenia: Comment: Up-to-date with bone density 04/04/2022 Code(s): M85.80 - Other specified disorders of bone density and structure, unspecified site Plan: Continuing to monitor bone density (4) Generalized anxiety disorder: Code(s): F41.1 - Generalized anxiety disorder Plan: Continue with present medication Orders: Orders Comprehensive Met. Panel Today R73.9 - Hyperglycemia, unspecified Free T4 (Free Thyroxine) Today E78.00 - Pure hypercholesterolemia, unspecified Lipid Panel Today E78.00 - Pure hypercholesterolemia, unspecified Vitamin B12 and Folate Today E78.00 - Pure hypercholesterolemia, unspecified Hemoglobin A1c Today R73.9 - Hyperglycemia, unspecified Complete Blood Count Auto Diff Today R73.9 - Hyperglycemia, unspecified Thyroid Stimulating Hormone Today E78.00 - Pure hypercholesterolemia, unspecified Vitamin D 25-OH Total Today E78.00 - Pure hypercholesterolemia, unspecified Coding Level of Care Code Est Pt Level 4 (16323) Diagnoses Overweight (BMI 25.0-29.9) E66.3 Hypercholesterolemia E78.00 Osteopenia M85.80 Generalized anxiety disorder F41.1
== END 2023-12-25 11:09 | disposition home or self-care (01) ==
PROVIDERS: PCP Internal Medicine; Visit Provider Internal Medicine
DX: E66.3 Overweight (principal); E78.00 Pure hypercholesterolemia, unspecified; M85.80 Other specified disorders of bone density and structure, unspecified site; F41.1 Generalized anxiety disorder
CPT/HCPCS: 99214

== ENCOUNTER 2024-02-26 07:05 | Outpatient (REF) | payer MEDICARE, SELFPAY ==
[2024-02-26 07:16] LABS: MANUAL DIFF FLAG NO
[2024-02-26 07:27] LABS: Basophils Absolute Auto 0.1 X10*3/uL (0.0-0.2); Eosinophils Absolute Auto 0.1 X10*3/uL (0.0-0.4); Eosinophils Percent Auto 1.8 % (0-4); Hematocrit 41.4 % (37.0-47.0); Hemoglobin 13.8 g/dl (12.0-16.0); Imm Gran Abs Auto 0.02 X10*3/uL (0.00-0.03); Imm Gran Pct Auto 0.3 % (0.0-0.4); Lymphocytes Absolute Auto 2.1 X10*3/uL (1.2-4.9); Lymphocytes Percent Auto 26.8 % (20-40); Mean Corpuscular HGB Conc 33.3 g/dl (31.0-35.0); Mean Corpuscular Hemoglobin 28.1 pg (27.0-33.0); Mean Corpuscular Volume 84.3 fL (80.0-98.0); Mean Platelet Volume 8.6 fL (9.4-12.3); Monocytes Absolute Auto 0.7 X10*3/uL (0.1-1.2); Monocytes Percent Auto 8.8 % (2-11); Neutrophils Absolute Auto 4.7 x10*3/uL (2.0-8.3); Neutrophils Percent Auto 61.3 % (45-73); Platelet Count 353 X10*3/uL (160-400); Red Blood Count 4.91 X10*6/uL (4.20-5.50); Red Cell Distribution Width 13.3 % (11.0-16.0); White Blood Count 7.7 X10*3/uL (4.8-10.8)
[2024-02-26 07:52] LABS: Estimated Average Glucose 105 mg/dL; Hemoglobin A1c % 5.3 % (<6.0)
[2024-02-26 07:53] LABS: Alanine Aminotransferase 20 U/L (0-31); Albumin Level 4.2 g/dL (3.5-5.0); Alkaline Phosphatase 100 U/L (39-117); Anion Gap 14 (12-20); Aspartate Amino Transferase 20 U/L (5-31); Bilirubin Total 0.4 mg/dL (0.0-1.0); Blood Urea Nitrogen 13 mg/dL (9-16); Calcium 9.7 mg/dL (8.4-10.2); Carbon Dioxide 27 mmol/L (22-29); Chloride 107 mmol/L (96-108); Cholesterol 205 mg/dL (<200); Estimated Glomerular Filt Rate > 60; Glucose Random 104 mg/dL (60-115); HDL Cholesterol 58 mg/dL (>40); LDL Cholesterol Calculated 127 mg/dL (<100); Potassium 4.8 mmol/L (3.3-5.1); Sodium 143 mmol/L (135-145); Total Protein 7.3 g/dL (6.5-8.0); Triglycerides 101 mg/dL (<150)
[2024-02-26 08:12] LABS: Free T4 (Free Thyroxine) 0.91 ng/dL (0.71-1.85); Thyroid Stimulating Hormone 1.64 uIU/mL (0.32-4.0); Vitamin D 25-OH Total 63.4 ng/mL (>30)
[2024-02-26 08:24] LABS: Folate 12.1 ng/mL (> or = 4.0); Vitamin B12 901 pg/mL (200-900)
== END 2024-02-26 07:06 | disposition home or self-care (01) ==
LOC: HO.LAB 07:05
PROVIDERS: PCP Internal Medicine; Visit Provider Internal Medicine
DX: R73.9 Hyperglycemia, unspecified (principal); E78.00 Pure hypercholesterolemia, unspecified
CPT/HCPCS: 36415; 80053; 80061; 82306; 82607; 82746; 83036; 84439; 84443; 85025

== ENCOUNTER 2024-02-29 10:17 | Outpatient (AMB) | payer MEDICARE, SELFPAY ==
[2024-02-29 10:18] VITALS: BP 140/82; PULSE 83; O2SAT 97; BMI 26.1
--- NOTE | 2024-02-29 10:18 | A.OFFVIS_ITS ---
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 Allergies ibuprofen Allergy (Unknown, Verified 02/29/24 10:45) Unknown naproxen Allergy (Unknown, Verified 02/29/24 10:45) Unknown 12 Hour Nasal Relief [place] Allergy (Unknown, Uncoded 02/29/24 10:45) Unknown Voltaren Allergy (Unknown, Uncoded 02/29/24 10:45) Unknown Medication List - Last Reconciled 02/29/24 by Marilynn Michael PA-C acetaminophen ER (Tylenol Arthritis Pain) 1,300 mg PO Q12H alum-mag hydroxide-simeth 400-400-40 mg/5 mL (Mylanta Maximum Strength) 5 mL PO QID PRN bupropion HCl XL 150 mg PO DAILY cholecalciferol (vitamin D3) 25 mcg PO DAILY fexofenadine (Cheryl Allergy) 180 mg PO DAILY multivitamin 1 tab PO DAILY HPI AWV HPI Details 68-year-old female with past medical his tory of osteopenia, generalized anxiety disorder, and hypercholesterolemia last seen by Dr. Russo December 2023 coming in for annual wellness visit. Patient states she has been feeling generally well. She does have a concern about the spots she has on her neck and chest which she would like evaluated. She also mentioned she occasionally has swelling in her ankles which comes and goes and worsens with prolonged walking or standing. [facility] Medical History Hypercholesterolemia Tubular adenoma of colon Annual physical exam Osteopenia Breast cancer screening by mammogram Anxiety and depression Atrophic vaginitis History of GI bleed Allergic rhinitis Surgical History No pertinent past surgical history Family History Father Myocardial infarct Mother CVA (cerebral vascular accident), Onset Age: 82 Social History Household Members Other:: Housing: House Alcohol intake: current Alcohol intake frequency: a few times a week Patient Tobacco Use Status: Former Tobacco user Tobacco use type: Cigarette Years Smoked: 1979 e-Cigarette/Vaping Use: Never Used Second Hand Smoke Exposure: No service: No Current occupational status: retired Current occupational exposures/hazards: No Sexual orientation: Straight/Heterosexual Gender identity: Female Cognitive needs: No Hearing needs: No Vision needs: No Questionnaire Medicare Wellness Checkup What [age] What gender do you identify with?: female During the past 4 weeks, how much have you been bothered by emotional problems such as feeling anxious, depressed, irritable, sad or downhearted, and blue?: not at all During the past 4 weeks, has your physical & emotional health limited your social activities with family, friends, neighbors, or groups?: not at all During the past 4 weeks, how much bodily pain have you generally had?: moderate pain During the past 4 weeks, was someone available to help you if you needed & wanted help?: yes, as much as I wanted During the past 4 weeks, what was the hardest physical activity you could do for at least 2 minutes?: moderate Can you get to places out of walking distance without help? (For eg., can you travel alone on buses, taxis or drive your car?): Yes Can you go shopping for groceries or clothes without someone's help?: Yes Can you prepare your own meals?: Yes Can you do your housework without help?: Yes Because of any health problems, do you need the help of another person with your personal care needs such as eating, bathing, dressing or getting around the house?: No Can you handle your own money without help?: No During the past 4 weeks, how would you rate your health in general?: very good During the past 4 weeks how have things been going for you?: pretty well Are you having difficulties driving your car?: no Do you always fasten your seat belt when you are in a car?: yes, usually During past 4 weeks, have you been bothered by the following: never: Falling or dizzy when standing up, Trouble eating well?, Teeth or denture problems? and Problems using the telephone? and sometimes: Tiredness or fatigue? Have you fallen 2 or more times in the past year?: No Are you afraid of falling?: No Are you a smoker?: no During the past 4 weeks, how many drinks of wine, beer, or other alcoholic beverages did you have?: 6-9 drinks per week Do you exercise for about 20 minutes 3 or more times a week?: yes, most of the time Have you been given information to help with the following?: no: Hazards in your house that might hurt you? and no: Keeping track of your medications? How often do you have trouble taking medicines the way you have been told to take them?: I always take medicine as prescribed How confident are you that you can control & manage most of your health problems?: very confident What is your race?: White Activity of Daily Living Bathing - sponge bath, tub bath or shower: receives no assistance (gets in/out by self, if usual bathing means Dressing - getting clothes from closets & drawers, including inner/outer garments & fasteners.: gets clothes & gets completely dressed without help Toileting - going to the 'toilet room' for urine/bowel elimination & cleaning se lf/arranging clothes: goes to toilet room, cleans self, arranges clothes without help Transfer: moves in & out of bed and chair without help (may use support object) Continence: controls urination/bowel movements completely by self Feeding: feeds self without help Total Score: 0 Information obtained from: patient Using telephone: independent Traveling: independent Shopping: independent Preparing meals: independent Housework: independent Taking medicine: independent Managing money: independent PHQ-9 Over the last 2 weeks, how often have you been bothered by any of the following problems? 1. Little interest or pleasure in doing things: several days 2. Feeling down, depressed, or hopeless: not at all 3. Trouble falling or staying asleep, or sleeping too much: more than half the days 4. Feeling tired or having little energy: not at all 5. Poor appetite or overeating: not at all 6. Feeling bad about yourself - or that you are a failure or have let yourself or your family down: not at all 7. Trouble concentrating on things, such as reading the newspaper or watching television: not at all 8. Moving or speaking so slowly that other people could have noticed. Or the opposite - being so fidgety or restless that you have been moving around a lot more than usual: not at all 9. Thoughts that you would be better off or of hurting yourself in some way: not at all Total score: 3 Depression Screening Interpretation: Negative Depression Screening Done: Yes 79107 - PHQ-9 Billing: Yes Source: Developed by Drs. Jr Mascorro, Licha Chery, Cristobal Rhodes and colleagues, with an educational jun from [employer]. Review of Systems Const Denies body aches, Denies fatigue, Denies fever(s), Denies frequent falls, Reports headache(s) (Occasional migraines) and Denies weakness Eyes Reports no additional complaints and Denies change in vision ENT Denies dysphagia, Denies dizziness, Denies facial pain, Reports headache(s) (Occasional migraines), Denies nasal congestion and Denies odynophagia Card Denies chest pain, Denies syncope, Denies irregular heart rhythm, Reports leg edema (Occasional swelling in ankles), Denies lightheadedness and Denies dyspnea Resp Denies cough and Denies dyspnea GI Denies constipation, Denies dysphagia, Denies dyspepsia, Denies diarrhea, Denies nausea, Denies odynophagia and Denies vomiting Denies urinary frequency, Denies dysuria, Denies urinary hesitancy and Denies urinary urgency Musc Denies back pain and Denies myalgias Skin/Breast Reports as per HPI Neuro Denies dizziness, Denies syncope, Denies frequent falls, Reports headache(s) (Occasional migraines) and Denies weakness Psych Reports no additional complaints Endo Denies fatigue Physical Exam Vital Signs: Last Vital Signs Pulse 83 02/29/24 10:18 BP 120/78 02/29/24 11:33 Pulse Ox 97 02/29/24 10:18 Oxygen Delivery Method Room Air 02/29/24 10:18 BMI result Body Mass Index 26.1 Const General: cooperative, healthy appearing, comfortable and no acute distress Orientation/consciousness: patient oriented x3 HEENT Head: Yes normocephalic Ears: hearing grossly normal bilaterally, external ears normal, TM's normal bilaterally and EAC's normal General nose exam: Normal external nose present Face and sinus: Yes normal facial exam and Yes sinuses nontender Mouth: Normal oral and palatal mucosa present and tongue normal Throat: Yes posterior oropharynx normal Eyes General: appearance normal, both eyes and all related structures Conjunctivae: conjunctivae normal Pupils: Equal, round and reactive pupils present EOM: EOMs intact bilaterally and No Nystagmus present Neck Neck: Yes normal visual inspection, Yes full ROM and Yes no lymphadenopathy Chest Chest palpation & inspection: normal inspection of the chest Resp Effort & Inspection: normal respiratory effort Auscultation: clear to auscultation bilaterally, no crackles, no rales, no rhonchi, no wheezes and breath sounds present Cardio Rate: regular rate Rhythm: regular rhythm Peripheral pulses: radial pulses present and dorsalis pedis present GI Inspection: Yes normal to inspection and No Abdominal wall edema Palpation (GI): Soft to palpation, not firm and nontender Auscultation: normal bowel sounds Rectal Exam - Female: deferred General: Yes no CVA tenderness Back/Spine/Pelvis Back: no CVA tenderness Skin Other: Multiple brown and flesh colored stuck on lesions on the chest and neck without bleeding, crusting or erythema Neuro General: patient oriented x3 Cranial nerves: Yes Equal, round and reactive pupils present, Yes Midline tongue present, Yes Ability to bilaterally elevate shoulders present and No Nystagmus present Gait exam (Neuro): Normal gait present Extrem General: Yes normal to inspection, Yes full ROM, No no pedal edema and No edema Psych Speech and movement: Normal speech and movement present Affect: normal affect Insight: Good insight present (Psych) Judgement: Good judgement present (Psych) Assessment & Plan Assessment & Plan (1) Seborrheic keratosis: Code(s): L82.1 - Other seborrheic keratosis Plan: Patient has spots on chest and neck that look most consistent with seborrheic keratosis. Referral to Dermatology sent for further evaluation. (2) Hypercholesterolemia: Code(s): E78.00 - Pure hypercholesterolemia, unspecified Plan: Patient was found to have mildly elevated cholesterol on last blood work. Avoid foods that are high in cholesterol such as red meat, fried foods, eggs and baked goods. Continue with healthy diet and exercise. (3) Elevated blood sugar: Code(s): R73.9 - Hyperglycemia, unspecified Plan: Patient's A1c is 5.3% on last blood work. Decrease the amount of carbohydrates such as pasta, bread, rice, and potatoes and limit the amount of sweets. Although fruits are generally healthy they should be eaten in moderation as they are still high in sugar. Continue with diet and exercise. (4) Osteoarthritis: Code(s): M19.90 - Unspecified osteoarthritis, unspecified site Plan: Patient takes Tylenol as needed for osteoarthritis. Declines the need for further workup at this time. (5) Generalized anxiety disorder: Code(s): F41.1 - Generalized anxiety disorder Plan: Continue on Wellbutrin. Patient declines the need for counselor at this time. (6) Osteopenia: Comment: Up-to-date with bone density 04/04/2022 Code(s): M85.80 - Other specified disorders of bone density and structure, unspecified site Plan: Bone density scan 04/04/2022 we will be due this year. Referral sent. (7) Medicare annual wellness visit, subsequent: Code(s): Z00.00 - Encounter for general adult medical examination without abnormal findin gs Plan: Patient is up-to-date on colonoscopy and referral was sent for mammogram and bone density scan today. She is due to have her flu vaccine this April and has made an appointment. We reviewed the importance healthcare proxy and MOLST form completion and she will bring knees to her next appointment. She is up-to-date on vaccines. (8) Leg swelling: Code(s): M79.89 - Other specified soft tissue disorders Plan: Patient has been having leg swelling that worsens with prolonged walking or standing and improves with elevation and compression stockings. Continue with conservative measures and follow up if symptoms worsen. Plan This note was constructed using voice recognition software. 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 Total time spent caring for the patient today was 45 minutes. This includes time spent before the visit reviewing the chart, time spent during the visit, and time spent after the visit and documentation. Orders: Orders XR DEXA axial skeleton Today Z78.0 - Asymptomatic menopausal state Referrals Dermatology Referral L82.1 - Other seborrheic keratosis Quality Reporting (2019) Depression/Bipolar (159/160/161/177) PHQ-9: Total score: 3 Coding Level of Care Code Medicare Subsequent (G0439) Diagnoses Seborrheic keratosis L82.1 Hypercholesterolemia E78.00 Elevated blood sugar R73.9 Osteoarthritis M19.90 Generalized anxiety disorder F41.1 Osteopenia M85.80 Medicare annual wellness visit, subsequent Z00.00 Leg swelling M79.89 CPT Codes Advance Care Planning - Time spent: 1-15 minutes, not on file ([id number]) Advance Care Planning Advance Care Planning discussion: Completed/Scanned Date of discussion: 02/29/24 Who was present: Patient Forms completed: Health Care Proxy and MOLST Time spent: 1-15 minutes, not on file Actual minutes spent: 10 Did not discuss due to Cultural/Spiritual beliefs: No
[2024-02-29 11:33] VITALS: BP 120/78
== END 2024-02-29 11:45 | disposition home or self-care (01) ==
PROVIDERS: PCP Internal Medicine
DX: L82.1 Other seborrheic keratosis (principal); E78.00 Pure hypercholesterolemia, unspecified; R73.9 Hyperglycemia, unspecified; M19.90 Unspecified osteoarthritis, unspecified site; F41.1 Generalized anxiety disorder; M85.80 Other specified disorders of bone density and structure, unspecified site; Z00.00 Encounter for general adult medical examination without abnormal findings; M79.89 Other specified soft tissue disorders
CPT/HCPCS: 1124F; G0439

== ENCOUNTER 2024-04-22 13:24 | Outpatient (REF) | payer MEDICARE, SELFPAY ==
--- NOTE | ~2024-04-22 | MM_ITS ---
EXAMINATION: MM SCREENING DIGITAL BREAST TOMOSYNTHESIS, BILATERAL CLINICAL INFORMATION: Screening. Asymptomatic. COMPARISON: Mammography: Comparison is made with available priors TECHNIQUE: Digital breast mammography with tomosynthesis is performed in both the craniocaudal and mediolateral oblique views along with computer-aided detection (CAD). FINDINGS: There are scattered areas of fibroglandular density (ACR BI-RADS breast composition Category b). There are no significant masses, abnormal calcifications, or other abnormalities. MM/MM tomosynthesis screening BI IMPRESSION: No mammographic evidence of malignancy. ASSESSMENT: BI-RADS BI-RADS 1 - Negative RECOMMENDATION: Routine annual mammography screening. 1 year F/U This examination should not preclude the clinical evaluation of a suspicious palpable abnormality. This patient's information was entered into a reminder system with a target due date for their next mammogram. Electronically signed by: Leilani Murillo DO 05/05/2024 05:53 PM EDT
--- NOTE | ~2024-04-22 | MM_ITS ---
EXAMINATION: BONE DENSITOMETRY CLINICAL INDICATION: Asymptomatic menopausal state. COMPARISON: Previous BD dated 03/23/2022 and baseline BD dated 12/13/2007. TECHNIQUE: Using a ISH DXA System (software version: 13.1) manufactured by [employer], dual-energy x-ray absorptiometry was performed of the lumbar spine and left hip. The images are of good technical quality. Summary results are attached. FINDINGS: AP SPINE L1-L4: Current: BMD 1.202 g/cm2, Z-score 1.7, T-score 0.2, normal, 0.7% increase from previous, 9.6% increase from baseline (<5% change is not significant). Prior: BMD 1.194 g/cm2. Baseline: BMD 1.097 g/cm2. LEFT FEMUR, NECK: Current: BMD 0.745 g/cm2, Z-score -0.5, T-score -2.1, osteopenia. Prior: BMD 0.707 g/cm2. Baseline: BMD 0.712 g/cm2. LEFT FEMUR, TOTAL: Current: BMD 0.890 g/cm2, Z-score 0.4, T-score -0.9, normal, 1.3% increase from previous, 3.9% increase from baseline (<5% change is not significant). Prior: BMD 0.879 g/cm2. Baseline: BMD 0.857 g/cm2. IDENTIFIED RISK FACTORS: Menopause. HISTORY OF FRACTURE: None listed. MEDICATIONS: Calcium supplement and/or multivitamin. Vitamin D. MM/XR DEXA axial skeleton IMPRESSION: 1. DIAGNOSIS: Osteopenia based on the lowest T-score value of -2.1 in the femoral neck applying World Health Organization criteria. 2. 10-YEAR FRACTURE RISK PREDICTION, FRAX: Major osteoporotic fracture (clinical spine, forearm, hip or shoulder) 12.5%. Hip fracture 2.6%. 3. Treatment Recommendations: NOF guidelines recommend consideration for treatment in postmenopausal women and men age 50 and older presenting with the following: -A hip or vertebral (clinical or morphometric) fracture. -T-score less than or equal to -2.5 at the femoral neck or spine after appropriate evaluation to exclude secondary causes. -Low bone mass at the hip or spine and a 10-year fracture probability by FRAX of greater than or equal to 3% for hip fracture or greater than or equal to 20% for major osteoporotic fracture based on the [place] adapted WHO algorithm. 4. Other Recommendations: All treatment decisions require clinical judgment and consideration of individual patient factors, including patient preferences, comorbidities, previous drug use, risk factors not captured in the FRAX model (e.g. frailty, falls, vitamin D deficiency, increased bone turnover, interval significant decline in bone density) and possible under or overestimation of fracture risk by FRAX. Additional medical evaluation for secondary cause of low bone mineral density may be appropriate. FUTURE SCAN RECOMMENDATION: People with diagnosed cases of osteoporosis or at high risk for fracture should have regular bone mineral density tests. For patients eligible for Medicare, routine testing is allowed once every 2 years. The testing frequency can be increased to one year for patients who have rapidly progressing disease, those who are receiving or discontinuing medical therapy to restore bone mass, or have additional risk factors. Electronically signed by: Avani Martinez MD 04/24/2024 08:06 AM EDT
== END 2024-04-22 13:25 | disposition home or self-care (01) ==
LOC: HO.MAMMO 13:24
PROVIDERS: PCP Internal Medicine
DX: Z12.31 Encounter for screening mammogram for malignant neoplasm of breast (principal); Z13.820 Encounter for screening for osteoporosis; Z78.0 Asymptomatic menopausal state
CPT/HCPCS: 77063; 77067; 77080

== ENCOUNTER → 2024-04-22 13:45 | Outpatient (BNV) | payer MEDICARE, SELFPAY | PROVIDERS: PCP Internal Medicine; Visit Provider Internal Medicine | DX: Z12.31 Encounter for screening mammogram for malignant neoplasm of breast (principal) | CPT/HCPCS: 77063; 77067 ==

== ENCOUNTER 2024-05-06 14:43 | Outpatient (AMB) | payer MEDICARE, SELFPAY ==
[2024-05-06 14:43] VITALS: BP 126/74; PULSE 93; O2SAT 95; BMI 26.3
--- NOTE | 2024-05-06 14:43 | A.OFFPC_ITS ---
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: No Accompanied by: Self / Same As Patient Allergies ibuprofen Allergy (Unknown, Verified 05/06/24 14:46) Unknown naproxen Allergy (Unknown, Verified 05/06/24 14:46) Unknown 12 Hour Nasal Relief [place] Allergy (Unknown, Uncoded 05/06/24 14:46) Unknown Voltaren Allergy (Unknown, Uncoded 05/06/24 14:46) Unknown Tobacco use date assessed: 12/25/23 Fall risk assessment: No Falls in past year Last assessed Fall Risk: 05/06/24 Dental Screening Dental Screen Date: 12/25/23 HPI f\u HPI Details 68-year-old overweight female with a his tory of elevated blood sugar hypercholesterolemia generalized anxiety disorder coming in for follow-up. Last seen for annual wellness February 2024. Patient's colonoscopy is up-to-date December 2022 mammogram recently done bone density is due. [facility] Medical History (Updated 05/06/24 @ 14:52 by Catalina Russo MD) Osteoarthritis Tinnitus Hypertriglyceridemia Elevated blood sugar Leg swelling Hypercholesterolemia Tubular adenoma of colon Annual physical exam Osteopenia Breast cancer screening by mammogram Anxiety and depression Atrophic vaginitis History of GI bleed Allergic rhinitis Surgical History No pertinent past surgical history Family History Father Myocardial infarct Mother CVA (cerebral vascular accident), Onset Age: 82 Social History Household Members Other:: Housing: House Alcohol intake: current Alcohol intake frequency: a few times a week Patient Tobacco Use Status: Former Tobacco user Tobacco use type: Cigarette Years Smoked: stopped 1979 e-Cigarette/Vaping Use: Never Used Second Hand Smoke Exposure: No service: No Current occupational status: retired Current occupational exposures/hazards: No Sexual orientation: Straight/Heterosexual Gender identity: Female Cognitive needs: No Hearing needs: No Vision needs: No Questionnaire PHQ-9 Over the last 2 weeks, how often have you been bothered by any of the following problems? 1. Little interest or pleasure in doing things: several days 2. Feeling down, depressed, or hopeless: not at all 3. Trouble falling or staying asleep, or sleeping too much: more than half the days 4. Feeling tired or having little energy: not at all 5. Poor appetite or overeating: not at all 6. Feeling bad about yourself - or that you are a failure or have let yourself or your family down: not at all 7. Trouble concentrating on things, such as reading the newspaper or watching television: not at all 8. Moving or speaking so slowly that other people could have noticed. Or the opposite - being so fidgety or restless that you have been moving around a lot more than usual: not at all 9. Thoughts that you would be better off or of hurting yourself in some way: not at all Total score: 3 Depression Screening Interpretation: Negative Depression Screening Done: Yes 78101 - PHQ-9 Billing: Yes Source: Developed by Drs. Jr Mascorro, Licha Chery, Cristobal Rhodes and colleagues, with an educational jun from [email or web address]. Thrive Questionnaire Date Thrive assessed: 12/25/23 Are you currently unemployed and looking for a job?: No AUDIT C Alcohol Use Questionnaire (AUDIT-C) 1. How often do you have a drink containing alcohol?: 2-3 times a week 2. How many drinks containing alcohol do you have on a typical day when you are drinking?: 1 or 2 3. How often do you have six or more drinks on one occasion?: Never Total Score: 3 SARITA-7 AMB Questionnaire SARITA-7 Date SARITA - 7 assessed: 12/25/23 Source: Developed by Drs. Jr Mascorro, Licha Chery, Cristobal Rhodes and colleagues, with an educational jun from [email or web address]. Physical exam (Primary Care) Vital Signs: Last Vital Signs Pulse 93 05/06/24 14:43 BP 126/74 05/06/24 14:43 Pulse Ox 95 05/06/24 14:43 Oxygen Delivery Method Room Air 05/06/24 14:43 BMI result Body Mass Index 26.3 Tobacco/Smoking Status: Tobacco use Status Tobacco use date assessed 12/25/23 05/06/24 14:49 Patient Tobacco Use Status Former Tobacco user 05/06/24 14:49 Tobacco use type Cigarette 05/06/24 14:49 e-Cigarette/Vaping Use Never Used 05/06/24 14:49 PHQ-9: PHQ-9 Score PHQ-9: Total score 3 05/06/24 14:53 Depression Screening Interpretation: Negative Thrive Assessment: Date of Thrive Assessment Date Thrive assessed 12/25/23 05/06/24 14:49 Const General: alert; No acute distress Eyes Conjunctivae: conjunctivae normal Resp Auscultation: clear to auscultation bilaterally Cardio Rate: regular rate Rhythm: regular rhythm GI Inspection: Yes normal to inspection Extrem General: Yes normal to inspection and No edema Office Procedures Flu Questionnaire Does the patient have a severe egg allergy?: No Does the patient have severe life threatening allergies?: No Does the patient have a fever or illness today?: No Has the patient ever had Guillain-[place] Syndrome?: No Has the patient ever had any past reaction to a flu shot?: No Immunizations Fluarix Triv [id number] (PF) 45 mcg (15 mcg x 3)/0.5 mL IM syringe Performing Provider: Catalina Russo MD [facility] Administered by: Eugenia Suarez LPN on 05/06/24 14:57 Dose Route Admin Location Dispensed Lot Number Expiration Date [facility] [employer] Stock[employer] 0.5 mL IM Left Deltoid 0.5 mL [id number] 01/12/25 [id number] [employer] VIS Given Date VIS Provided VIS Publication Date 05/06/24 Single Vaccine 21 Eligibility Eligibility Date Funding Source Not [facility] Eligible 05/06/24 Private Coding Level of Care Code Est Pt Level 4 (24113) Diagnoses Hypercholesterolemia E78.00 Impaired glucose tolerance R73.02 Osteopenia M85.80 Generalized anxiety disorder F41.1 Assessment & Plan Assessment & Plan (1) Hypercholesterolemia: Code(s): E78.00 - Pure hypercholesterolemia, unspecified Category: Medical Plan: Avoid fried foods, chicken skin, eggs, butter margarine, pastries and meat. Be it pork or beef they have a lot of cholesterol LDL goal of less than 130 and triglyceride of less than 150. (2) Impaired glucose tolerance: Code(s): R73.02 - Impaired glucose tolerance (oral) Category: Medical Plan: Decrease the amount of carbohydrate intake, pasta, bread, rice and potatoes are all sugar and that is aside from all the sweet stuff, remember that fruits are good but they are Sweet also. (3) Osteopenia: Comment: Up-to-date with bone density 04/04/2022 Code(s): M85.80 - Other specified disorders of bone density and structure, unspecified site Category: Medical Plan: Noted improvements in bone density. (4) Generalized anxiety disorder: Code(s): F41.1 - Generalized anxiety disorder Category: Medical Plan: continue with med . Orders: Orders Influenza [id number] Immunization Today Z23 - Encounter for immunization
== END 2024-05-06 15:12 | disposition home or self-care (01) ==
PROVIDERS: PCP Internal Medicine; Visit Provider Internal Medicine
DX: E78.00 Pure hypercholesterolemia, unspecified (principal); R73.02 Impaired glucose tolerance (oral); M85.80 Other specified disorders of bone density and structure, unspecified site; F41.1 Generalized anxiety disorder; Z23 Encounter for immunization

== ENCOUNTER → 2024-05-06 14:43 | Outpatient (BNVA) | payer MEDICARE, SELFPAY | PROVIDERS: PCP Internal Medicine; Visit Provider Internal Medicine | DX: E78.00 Pure hypercholesterolemia, unspecified (principal); R73.02 Impaired glucose tolerance (oral); M85.80 Other specified disorders of bone density and structure, unspecified site; F41.1 Generalized anxiety disorder; Z23 Encounter for immunization | CPT/HCPCS: 90471; 90656; 96127; 99212 ==

== ENCOUNTER 2025-03-03 09:56 | Outpatient (AMB) | payer MEDICARE, SELFPAY ==
[2025-03-03 10:07] VITALS: BP 136/72; PULSE 74; O2SAT 96; BMI 25.4
--- NOTE | 2025-03-03 10:07 | AM.OFFVISMDC ---
Intake Vital Signs 03/03/25 10:07 Height 5 ft 4 in Weight 148 lb BMI 25.4 BP 136/72 Blood Pressure Location Lt brachial Position Sitting Pulse 74 Pulse Source Pulse Oximeter Pulse Oximetry (%) 96 Oxygen Delivery Method Room Air Intake Visit Reasons: V G0439 Allergies ibuprofen Allergy (Unknown, Verified 03/03/25 10:07) Unknown naproxen Allergy (Unknown, Verified 03/03/25 10:07) Unknown 12 Hour Nasal Relief [place] Allergy (Unknown, Uncoded 03/03/25 10:07) Unknown Voltaren Allergy (Unknown, Uncoded 03/03/25 10:07) Unknown Medication List - Last Reconciled 03/03/25 by Catalina Russo MD acetaminophen ER (Tylenol Arthritis Pain) 1,300 mg PO Q12H alum-mag hydroxide-simeth 400-400-40 mg/5 mL (Mylanta Maximum Strength) 5 mL PO QID PRN bupropion HCl XL 150 mg PO DAILY cholecalciferol (vitamin D3) 25 mcg PO DAILY magnesium glycinate mg PO multivitamin 1 tab PO .QOD HPI SWV G0439 HPI Details [facility]enter[facility]. [place] [facility] [place] had norovirus 09/02/2024 diarrhea L amarjit pain- waS TOLD bruised [facility] Medical History (Updated 03/03/25 @ 10:52 by Catalina Russo MD) Osteoarthritis Tinnitus Hypertriglyceridemia Elevated blood sugar Leg swelling Hypercholesterolemia Tubular adenoma of colon Annual physical exam Osteopenia Breast cancer screening by mammogram Anxiety and depression Atrophic vaginitis History of GI bleed Allergic rhinitis Surgical History No pertinent past surgical history Family History Father Myocardial infarct Mother CVA (cerebral vascular accident), Onset Age: 82 Social History (Updated 03/03/25 @ 11:00 by Catalina Russo MD) Household Members Other:: Housing: House Alcohol intake: current Alcohol intake frequency: a few times a week Comment: once drink 5x a week Patient Tobacco Use Status: Former Tobacco user Tobacco use type: Cigarette Years Smoked: stopped 1979 e-Cigarette/Vaping Use: Never Used Second Hand Smoke Exposure: No service: No Current occupational status: retired Current occupational exposures/hazards: No Sexual orientation: Straight/Heterosexual Gender identity: Female Cognitive needs: No Hearing needs: No Vision needs: No Questionnaire Medicare Wellness Checkup [age] During the past 4 weeks, how much have you been bothered by emotional problems such as feeling anxious, depressed, irritable, sad or downhearted, and blue?: slightly During the past 4 weeks, has your physical & emotional health limited your social activities with family, friends, neighbors, or groups?: not at all During the past 4 weeks, how much bodily pain have you generally had?: moderate pain During the past 4 weeks, was someone available to help you if you needed & wanted help?: yes, quite a bit During the past 4 weeks, what was the hardest physical activity you could do for at least 2 minutes?: moderate Can you get to places out of walking distance without help? (For eg., can you travel alone on buses, taxis or drive your car?): Yes Can you go shopping for groceries or clothes without someone's help?: Yes Can you prepare your own meals?: Yes Can you do your housework without help?: Yes Because of any health problems, do you need the help of another person with your personal care needs such as eating, bathing, dressing or getting around the house?: No Can you handle your own money without help?: Yes During the past 4 weeks, how would you rate your health in general?: very good During the past 4 weeks how have things been going for you?: pretty well Are you having difficulties driving your car?: no Do you always fasten your seat belt when you are in a car?: yes, usually During past 4 weeks, have you been bothered by the following: never: Falling or dizzy when standing up, Sexual problems?, Trouble eating well?, Teeth or denture problems? and Problems using the telephone? and sometimes: Tiredness or fatigue? Have you fallen 2 or more times in the past year?: Yes Are you afraid of falling?: No Are you a smoker?: no During the past 4 weeks, how many drinks of wine, beer, or other alcoholic beverages did you have?: 2-5 drinks per week Do you exercise for about 20 minutes 3 or more times a week?: yes, most of the time Have you been given information to help with the following?: yes: Hazards in your house that might hurt you? and no: Keeping track of your medications? How often do you have trouble taking medicines the way you have been told to take them?: I always take medicine as prescribed How confident are you that you can control & manage most of your health problems?: very confident What is your race?: White PHQ-9 Over the last 2 weeks, how often have you been bothered by any of the following problems? 1. Little interest or pleasure in doing things: not at all 2. Feeling down, depressed, or hopeless: several days 3. Trouble falling or staying asleep, or sleeping too much: several days 4. Feeling tired or having little energy: more than half the days 5. Poor appetite or overeating: not at all 6. Feeling bad about yourself - or that you are a failure or have let yourself or your family down: not at all 7. Trouble concentrating on things, such as reading the newspaper or watching television: not at all 8. Moving or speaking so slowly that other people could have noticed. Or the opposite - being so fidgety or restless that you have been moving around a lot more than usual: not at all 9. Thoughts that you would be better off or of hurting yourself in some way: not at all Total score: 4 Depression Screening Interpretation: Positive Depression Screening Done: Yes Source: Developed by Drs. Jr Mascorro, Licha Chery, Cristobal Rhodes and colleagues, with an educational jun from [employer]. Thrive Questionnaire Date Thrive assessed: 03/03/25 I am a: Patient What is your living situation today?: I have a steady place to live Within the past 12 months, did the food you bought not last and you didn't have the money to get more?: Never true Within the past 12 months, did you worry whether your food would run out before you got money to buy more?: Never true Do you have trouble paying for medicines?: No Do you have trouble getting transportation to medical appointments?: No Do you have trouble paying your heating and electricity bill?: No Do you have trouble taking care of your child, family member or friend?: No Do you have trouble with day-to-day activities such as bathing, preparing meals, shopping, managing finances, etc.?: No Are you currently unemployed and looking for a job?: No Are you interested in more education?: No Currently or been in a relationship where the following occur: No concerns reported THRIVE Score: 0 SARITA-7 AMB Questionnaire SARITA-7 Date SARITA - 7 assessed: 03/03/25 Feeling nervous, anxious, or on edge: 1 = Several days Not being able to stop or control worryin = Not at all Worrying too much about different things: 1 = Several days Trouble relaxin = Not at all Being so restless that it is hard to sit still: 0 = Not at all Becoming easily annoyed or irritable: 0 = Not at all Feeling afraid as if something awful might happen: 0 = Not at all Total SARITA-7 score (0-4 normal; 5-9 mild; 10-14 moderate; 15-21 severe): 2 Source: Developed by Drs. Jr Mascorro, Licha Chery, Cristobal Rhodes and colleagues, with an educational jun from [employer]. Review of Systems Const Denies poor appetite and Denies weakness Eyes Denies no additional complaints ENT Reports Normal hearing present, Denies dizziness, Denies nasal congestion, Denies tinnitus and Denies sore throat Card Denies chest pain, Denies syncope, Denies rapid heart rate and Denies dyspnea Resp Denies cough and Denies dyspnea GI Denies change in stool character, Reports constipation, Denies diarrhea, Denies nausea and Denies vomiting Denies urinary frequency, Denies difficulty voiding and Denies dysuria Neuro Reports Normal hearing present, Denies confusion, Denies dizziness, Denies syncope and Denies weakness Psych Denies confusion Physical Exam Vital Signs: Last Vital Signs Pulse 74 03/03/25 10:07 BP 136/72 03/03/25 10:07 Pulse Ox 96 03/03/25 10:07 Oxygen Delivery Method Room Air 03/03/25 10:07 BMI result Body Mass Index 25.4 Const General: No confusion Orientation/consciousness: No confusion HEENT Head: Yes normocephalic Ears: external ears normal and TM's normal bilaterally Face and sinus: Yes normal facial exam Mouth: moist mucous membranes Throat: Yes tonsils normal Eyes Conjunctivae: conjunctivae normal Pupils: Equal, round and reactive pupils present and Pupil accommodation reflex normal Direct Ophthalmoscopy: normal light reflex Neck Neck: No lymphadenopathy Thyroid: Thyroid normal Chest Chest palpation & inspection: normal inspection of the chest Resp Effort & Inspection: normal respiratory effort and no audible wheezes Auscultation: clear to auscultation bilaterally, no crackles, no wheezes and lung sounds not diminished Cardio Rate: regular rate Rhythm: regular rhythm Peripheral pulses: radial pulses present and dorsalis pedis present GI Palpation (GI): no masses Auscultation: normal bowel sounds and normoactive bowel sounds Rectal Exam - Female: deferred Skin General skin exam: no rashes or lesions noted Rashes: no rashes Neuro General: No confusion Cranial nerves: Yes Equal, round and reactive pupils present and Yes Normal hearing present Cognition (Neuro): normal cognition Gait exam (Neuro): Normal gait present Motor exam (neuro): 5/5 motor strength present throughout Deep tendon reflexes (DTR's): Right brachioradialis reflex intensity grade: 2+, Left brachioradialis reflex intensity grade: 2+, Right patellar reflex intensity grade: 2+ and Left patellar reflex intensity grade: 2+ Extrem General: No edema Assessment & Plan Assessment & Plan (1) Medicare annual wellness visit, subsequent: Code(s): Z00.00 - Encounter for general adult medical examination without abnormal findings Plan: Patient is advised to eat healthy, keep well hydrated, keep active and have adequate sleep. (2) Osteopenia: Comment: Up-to-date with bone density 04/04/2022 Code(s): M85.80 - Other specified disorders of bone density and structure, unspecified site Plan: Continue to keep active test about calcium and vitamin-C (3) Impaired glucose tolerance: Code(s): R73.02 - Impaired glucose tolerance (oral) Plan: Decrease the amount of carbohydrate intake, pasta, bread, rice and potatoes are all sugar and that is aside from all the sweet stuff, remember that fruits are good but they are Sweet also. Will need blood work (4) Hypercholesterolemia: Code(s): E78.00 - Pure hypercholesterolemia, unspecified Plan: Avoid fried foods, chicken skin, eggs, butter margarine, pastries and meat. Be it pork or beef they have a lot of cholesterol will need blood work (5) Generalized anxiety disorder: Code(s): F41.1 - Generalized anxiety disorder Plan: Continue with present medication Plan History of Present Illness The patient is a 69-year-old female presenting for an annual wellness visit. She has a history of osteopenia, with the last bone density test conducted in March 2022, and reports a 5-pound weight loss since her last visit. The patient has been diagnosed with hyperhidrosis, generalized anxiety disorder, hypercholesterolemia, and impaired glucose tolerance. Her last blood work in February of the previous year showed normal blood count and electrolytes, with an LDL cholesterol level of 127 mg/dL. She follows up with the arthritis treatment center and was last seen in December for multiple arthritic complaints, including cervical disc degeneration, spondylosis, bilateral trochanteric bursitis, occipital tendinitis, and arthralgia of both hands and knees. She received a right shoulder injection which provided relief. In August, the patient experienced a fall due to fainting, attributed to a neurovirus, resulting in a bone bruise on her left knee. She reports no prior history of falls or fainting episodes. The patient has a history of cataracts, identified during an eye examination in October. She reports no significant issues with her hearing, although her left ear occasionally buzzes. Health Maintenance - Up to date with mammogram, colonoscopy, and bone density screening - Discussed importance of staying active and maintaining calcium and vitamin C intake - Advised on the need for new blood work to monitor cholesterol and glucose levels - Discussed alcohol consumption and its impact on health - Reviewed vaccination status, including shingles and pneumonia vaccines Social History - Alcohol: Consumes alcohol up to five nights a week, depending on meals - Smoking: Quit smoking 40-50 years ago - Physical Activity: Engages in regular physical activity, maintaining a large house and garden - Sleep: Takes magnesium glycinate to aid sleep, reports improved sleep quality Review of Systems - General: Reports 5-pound weight loss - Cardiovascular: Denies chest pain, dyspnea, or palpitations - Respiratory: Denies cough or wheezing - Gastrointestinal: Denies nausea, vomiting, diarrhea, or constipation - Neurological: Denies dizziness or syncope, reports occasional buzzing in left ear - Musculoskeletal: Reports arthralgia in hands and knees, denies recent falls - Genitourinary: Denies dysuria, reports nocturia once or twice per night Physical Exam General: Cooperative, healthy appearing, comfortable, no acute distress and well developed Orientation: Patient oriented x3 Limitations: No limitations Head: Normal to inspection Ears: Hearing grossly normal bilaterally, though left ear buzzes a little Nose: Normal external nose present Face and sinus: Normal facial exam Eyes: Appearance normal, both eyes and all related structures; beginning of cataracts noted Neck: Normal visual inspection and Yes full ROM Respiratory: Normal respiratory effort and able to speak in complete sentences. Clear to auscultation bilaterally Cardiovascular: Regular rate and rhythm. Normal S1 and S2 GI: Normal to inspection. Soft to palpation and nontender Skin: No rashes or lesions noted Neuro: Patient oriented x3 Extremities: Normal to inspection; left knee bone bruise noted, no discoloration but painful; right shoulder injection site noted, occasional soreness Results - Labs: Last blood work in February showed normal blood count and electrolytes, LDL cholesterol 127 mg/dL - Imaging: Bone density test in March 2022 Plan The patient will continue with her current medications, including bupropion, vitamin D, and multivitamins, with magnesium glycinate for sleep improvement. New blood work is required to monitor cholesterol and glucose levels, given her history of hypercholesterolemia and impaired glucose tolerance. The patient is advised to maintain her physical activity and dietary intake of calcium and vitamin C to support bone health, considering her osteopenia. Vaccination updates include the need for a pneumonia shot, with consideration for timing alongside other vaccines such as the flu shot. The patient is encouraged to moderate alcohol consumption, particularly in relation to its effects on blood pressure and overall health. Patient was informed and verbally consented to the use of an ambient scribe for clinic note documentation during this visit. Discussion Notes During the visit, we discussed the patient's current medication regimen, emphasizing the importance of adherence to bupropion, vitamin D, and multivitamins, as well as the use of magnesium glycinate for sleep improvement. We reviewed the need for updated blood work to monitor cholesterol and glucose levels, given her history of hypercholesterolemia and impaired glucose tolerance. I advised the patient to maintain her physical activity and dietary intake of calcium and vitamin C to support bone health, considering her osteopenia. We discussed vaccination updates, including the need for a pneumonia shot, and considered the timing alongside other vaccines such as the flu shot. The patient was encouraged to moderate alcohol consumption, particularly in relation to its effects on blood pressure and overall health. Patient Instructions - Continue taking bupropion, vitamin D, and multivitamins as prescribed. - Use magnesium glycinate to aid sleep as needed. - Schedule and complete new blood work to monitor cholesterol and glucose levels. - Maintain physical activity and ensure adequate intake of calcium and vitamin C. - Plan for a pneumonia shot and consider timing with other vaccines. - Limit alcohol consumption to reduce health risks. Orders: Orders Comprehensive Met. Panel Today R73.02 - Impaired glucose tolerance (oral) Free T4 (Free Thyroxine) Today R73.02 - Impaired glucose tolerance (oral) Hemoglobin A1c Today R73.02 - Impaired glucose tolerance (oral) Vitamin B12 and Folate Today R73.02 - Impaired glucose tolerance (oral) Vitamin D 25-OH Total Today R73.02 - Impaired glucose tolerance (oral) Lipid Panel Today E78.00 - Pure hypercholesterolemia, unspecified, R73.02 - Impaired glucose tolerance (oral) Complete Blood Count Auto Diff Today R73.02 - Impaired glucose tolerance (oral) Thyroid Stimulating Hormone Today R73.02 - Impaired glucose tolerance (oral) Quality Reporting (2019) Depression/Bipolar (159/160/161/177) PHQ-9: Total score: 4 Coding Level of Care Code Medicare Subsequent (G0439) Diagnoses Medicare annual wellness visit, subsequent Z00.00 Osteopenia M85.80 Impaired glucose tolerance R73.02 Hypercholesterolemia E78.00 Generalized anxiety disorder F41.1
--- OUTSIDE RECORDS SUMMARY | 2025-03-03 11:05 | XMS_ITS | Patient Health Record ---
Author Organization [facility] Address [address] [place] [address] Care Team Providers Care Dry Talc Racker Name Role Phone Po Catalina APPLE Primary Care Provider Jr Storey [phone] Allergies Allergen (clinical drug ingredient) Drug/Non Drug Allergy documented on EMR Reaction Allergy Type Onset Date Status Aleve Unknown Drug Allergy Active ibuprofen ibuprofen (uncoded) Unknown Allergy Active Reason For Referral No Information Medications Medication SIG (Take, Route, Fr equency, Duration) Notes Start Date End Date Status Wellbutrin SR 150 MG 1 tablet in the mor gio Orally Once a day Active Tylenol Arthritis Pain Active Immunizations Vaccine Route Administration Date Status Comme nts Influenza Unknown 04/19/2022 Administered Social History Tobacco Use: Social History Observation Description Date Details (start date - stop date) Former Smoker NA - NA Tobacco Use/Smoking Question Answer Notes Patient is a former smoker How long has it been since you last smoked? > 10 years Alcohol Screen Question Answer Notes Did you have a drink contain ing alcohol in the past year? Yes How often did you have a dri nk containing alcohol in the past year? 2 to 3 times a week (3 points) How many drinks did you have on a typical day when you were drinking in the past year? 1 or 2 drinks (0 point) How often did you have 6 or more drinks on one occasion in the past year? Never (0 point) Points 3 Interpretation Positive Section Notes: Nonsmoker; 2 glasses of wine 2 or 3 times a week Nonsmoker; 2 glasses of wine 2 or 3 times a week Problems Problem Type SNOMED Code ICD Code Onset Dates Problem Status W/U Status Risk Notes Problem 521708478 Encounter for screening for malignant neoplasm of colon (Z12.11) Active confirmed Problem 238331281 History of adenomatous polyp of colon (Z86.010) Active confirmed Problem Diverticulosis o f large intestine without perforation or abscess without bleeding (K57.30) Active confirmed Problem 419020513 Preprocedural examination (Z01.818) Active confirmed Plan Of Treatment Pending Test Test Name Order Date Pathology 12/25/2022 Future Test Test Name Order Date COLONOSCOPY 04/26/2017 COLONOSCOPY 04/19/2022 Insurance Providers Payer Name Payer Address Payer Phone Subscriber Number Group Number Insured Name Patient Relationship to Insured Coverage Start Date Coverage End Date [place]ARE OF [place] [address] [facility] [place] [id number] [phone] [id number] [employer] DIA Self - patient is the insured Medical (General) History Medical History History ICD Code Anxiety GI bleed---melena--on Aleve--not hospita lized---approx 2009 Screening colonoscopy 11/2008 ---1 small tubular adenoma removed, diverticulosis, internal hemorrhoids Denies CA,DM,CVA,Lung disease,renal dise ase Arthritis in spine and ankles,knees wris t shoulders Colonoscopy in 05/2017 with a small tubular adenoma and hyperplastic polyp removed Surgical History Surgery Date(Month/Year)
== END 2025-03-03 11:12 | disposition home or self-care (01) ==
LOC: HO.HMCH 09:57
PROVIDERS: PCP Internal Medicine; Visit Provider Internal Medicine
DX: Z00.00 Encounter for general adult medical examination without abnormal findings (principal); M85.80 Other specified disorders of bone density and structure, unspecified site; R73.02 Impaired glucose tolerance (oral); E78.00 Pure hypercholesterolemia, unspecified; F41.1 Generalized anxiety disorder

== ENCOUNTER 2025-03-11 07:55 | Outpatient (REF) | payer MEDICARE, SELFPAY ==
--- OUTSIDE RECORDS SUMMARY | 2025-03-11 07:58 | XMS_ITS | Patient Health Record ---
Author Organization [facility] Address [address] [place] [address] Care Team Providers Care Housecalls Nurse Name Role Phone Po Catalina APPLE Primary Care Provider Jr Storey [phone] Allergies Allergen (clinical drug ingredient) Drug/Non Drug [...] Problem Status W/U Status Risk Notes Problem 873061650 Encounter for screening for malignant neoplasm of colon (Z12.11) Active confirmed Problem 207872862 History of adenomatous polyp of colon (Z86.010) Active confirmed Problem Diverticulosis o f large intestine without perforation or abscess without bleeding (K57.30) Active confirmed Problem 672617615 Preprocedural examination (Z01.818) Active confirmed Plan Of Treatment Pending Test Test Name Order Date Pathology 12/25/2022 Future Test Test Name Order Date COLONOSCOPY 04/26/2017 COLONOSCOPY 04/19/2022 Insurance Providers Payer Name Payer Address Payer Phone Subscriber Number Group Number Insured Name Patient Relationship to Insured Coverage Start Date Coverage End Date [place] [address] [facility] [place] [id number] [employer] DIA Self - patient is the insured Medical (General) History Medical History History ICD Code Anxiety GI bleed---melena--on Aleve--not hospita lized---approx 2009 Screening colonoscopy 11/2008 ---1 small tubular adenoma removed, diverticulosis, internal hemorrhoids Denies [place],DM,CVA,Lung disease,renal dise ase Arthritis in spine and ankles,knees wris t shoulders Colonoscopy in 05/2017 with a small tubular adenoma and hyperplastic polyp removed Surgical History Surgery Date(Month/Year)
[2025-03-11 08:23] LABS: MANUAL DIFF FLAG NO
[2025-03-11 08:41] LABS: Hematocrit 40.6 % (37.0-47.0); Hemoglobin 12.9 g/dl (12.0-16.0); Imm Gran Abs Auto 0.02 X10*3/uL (0.00-0.03); Imm Gran Pct Auto 0.3 % (0.0-0.4); Lymphocytes Absolute Auto 2.2 X10*3/uL (1.2-4.9); Mean Corpuscular HGB Conc 31.8 g/dl (31.0-35.0); Mean Corpuscular Hemoglobin 25.3 pg (27.0-33.0); Mean Corpuscular Volume 79.8 fL (80.0-98.0); NRBC Abs Auto 0.000 X10*3/uL (0.0-0.012); NRBC Pct Auto 0.0 /100WBC (0.0-0.2); Platelet Count 342 X10*3/uL (160-400); Red Blood Count 5.09 X10*6/uL (4.20-5.50); White Blood Count 7.7 X10*3/uL (4.8-10.8)
[2025-03-11 08:49] LABS: Hemoglobin A1C 124.8286 umol/L; Total Hemoglobin (HGBA1C) 3319.8806 umol/L
[2025-03-11 09:31] LABS: Alanine Aminotransferase 17 U/L (0-31); Albumin Level 4.4 g/dL (3.5-5.0); Alkaline Phosphatase 92 U/L (39-117); Anion Gap 10 (12-20); Aspartate Amino Transferase 26 U/L (5-31); Blood Urea Nitrogen 14 mg/dL (9-16); Calcium 9.3 mg/dL (8.4-10.2); Carbon Dioxide 26 mmol/L (22-29); Chloride 107 mmol/L (96-108); Cholesterol 227 mg/dL (<200); Estimated Glomerular Filt Rate > 60; HDL Cholesterol 59 mg/dL (>40); Potassium 4.4 mmol/L (3.3-5.1); Sodium 139 mmol/L (135-145); Total Protein 7.3 g/dL (6.5-8.0); Triglycerides 144 mg/dL (<150)
[2025-03-11 09:38] LABS: Free T4 (Free Thyroxine) 0.89 ng/dL (0.71-1.85); Thyroid Stimulating Hormone 1.42 uIU/mL (0.32-4.0)
[2025-03-11 10:13] LABS: Folate 12.3 ng/mL (> or = 4.0); Vitamin B12 823 pg/mL (200-900)
== END 2025-03-11 07:56 | disposition home or self-care (01) ==
LOC: HO.LAB 07:55
PROVIDERS: PCP Internal Medicine; Visit Provider Internal Medicine
DX: R73.02 Impaired glucose tolerance (oral) (principal); E78.00 Pure hypercholesterolemia, unspecified
CPT/HCPCS: 36415; 80053; 80061; 82306; 82607; 82746; 83036; 84439; 84443; 85025

== ENCOUNTER 2025-04-07 10:01 | Outpatient (AMB) | payer MEDICARE, SELFPAY ==
--- NOTE | 2025-04-07 10:02 | A.OFFVIS_ITS ---
Vital Signs 04/07/25 10:06 Height 5 ft 4 in Weight 151 lb BMI 25.9 BP 122/78 Intake Visit Reasons: PIN PUSHER annual exam Research Director: Research Director Present (FRANDY Rapp ) Accompanied by: Self / Same As Patient Allergies ibuprofen Allergy (Unknown, Verified 04/07/25 10:09) Unknown naproxen Allergy (Unknown, Verified 04/07/25 10:09) Unknown 12 Hour Nasal Relief [place] Allergy (Unknown, Uncoded 03/03/25 10:07) Unknown Voltaren Allergy (Unknown, Uncoded 03/03/25 10:07) Unknown Is last menstrual period known: No Post menopausal: Yes Patient : No HPI Comments Details: Patient is a postmenopausal woman presenting 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 Brand Coordinator concerns: external itching and dryness, slight occasional odor, uses Replens which helps. She denies any urinary symptoms or pelvic pain. Currently not sexually active, . Denies any vaginal dryness or irritation. STI testing offered; she declines. Attempting to eat a healthy diet with calcium and vitamin D and stays active with exercise. Last pap smear; 2022, negative. Last mammogram; 2023. Colonoscopy is UTD. Denies any family history of breast, ovarian or colon cancer. [facility] Medical History Osteoarthritis Tinnitus Hypertriglyceridemia Elevated blood sugar Leg swelling Hypercholesterolemia Tubular adenoma of colon Annual physical exam Osteopenia Breast cancer screening by mammogram Anxiety and depression Atrophic vaginitis History of GI bleed Allergic rhinitis Surgical History No pertinent past surgical history Family History Father Myocardial infarct Mother CVA (cerebral vascular accident), Onset Age: 82 Social History Household Members Other:: Housing: House Alcohol intake: current Alcohol intake frequency: a few times a week Comment: once drink 5x a week Patient Tobacco Use Status: Former Tobacco user Tobacco use type: Cigarette Years Smoked: stopped 1979 e-Cigarette/Vaping Use: Never Used Second Hand Smoke Exposure: No service: No Current occupational status: retired Current occupational exposures/hazards: No Sexual orientation: Straight/Heterosexual Gender identity: Female Cognitive needs: No Hearing needs: No Vision needs: No Female Reproductive History Menstrual control method: none Total pregnancies: 4 Full term: 0 Ab spontaneous: 4 Date of last pap smear: 12/06/22 (Negative pap smear,negative hpv ) Date of Mammogram: 04/22/24 (BI RAD 1) Date of last Bone Density Screenin04/22/24 Review of Systems Const All systems reviewed & are unremarkable except as noted in HPI and below Reports as per HPI Eyes Reports no additional complaints ENT Reports no additional complaints Card Reports no additional complaints Resp Reports no additional complaints GI Reports as per HPI and Reports no additional complaints Reports as per HPI Musc Reports no additional complaints Skin/Breast Reports as per HPI Neuro Reports no additional complaints Psych Reports no additional complaints Endo Reports no additional complaints Chago/Lymph Reports no additional complaints Aller/Immun Reports no additional complaints Physical Exam Vital Signs: Last Vital Signs BP 122/78 04/07/25 10:06 BMI result Body Mass Index 25.9 Const General: cooperative, healthy appearing, no acute distress, well developed and alert Orientation/consciousness: patient oriented x3 HEENT Head: Yes normal to inspection Eyes General: appearance normal, both eyes and all related structures Neck Neck: Yes normal visual inspection Thyroid: Thyroid normal Chest Chest palpation & inspection: normal inspection of the chest and other (no puckering, dimpling, peau de orange, retraction, discharge, masses) Breast/axilla inspection: normal inspection of the breasts Breast/axilla palpation: normal palpation of the breasts Resp Effort & Inspection: normal respiratory effort GI Inspection: Yes normal to inspection Palpation (GI): Soft to palpation Rectal Exam - Female: deferred Other: External vulvar: hypopigmentation w/scattered excoriations of periclitoral, and bilateral labia minora General: Yes bladder normal to palpation External Female Exam: normal external appearance and normal appearance of the urethra Speculum Exam - Vagina: normal appearance of the vagina, normal palpation, normal vaginal discharge and vagina atrophic Speculum Exam - Cervix: normal appearance of the cervix and normal palpation Bimanual exam- vagina & uterus: normal bimanual exam, normal palpation, uterine size normal, bladder normal to palpation, normal palpation and non-tender Bimanual Exam- Adnexa, other: no masses Skin General skin exam: no rashes or lesions noted Rashes: no rashes Neuro General: patient oriented x3 Cognition (Neuro): normal cognition Extrem General: Yes normal to inspection Psych Attitude: cooperative Thought process: Normal thought process present Assessment & Plan Assessment & Plan (1) Encounter for well woman exam with routine gynecological exam: Code(s): Z01.419 - Encounter for gynecological examination (general) (routine) without abnormal findings Category: Medical Plan: Discussed: Current recommendations for pap smears per ASCCP guidelines. Breast awareness, periodic self breast exams and yearly mammogram. Maintain a healthy lifestyle, well balanced diet including Calcium 1,200 mg and Vitamin D 600 IU daily, and routine exercise. Contact the office with any postmenopausal bleeding. Patient verbalizes understanding and agrees to the plan of care. She was given opportunity to ask questions and all questions were answered to the best of my ability. RTO in 1 year for annual underwriter mortgage loan exam. This note is constructed using voice recognition software. While every effort has been made to ensure accuracy, knockout machine operator errors may have been included. (2) Vulvar itching: Code(s): L29.2 - Pruritus vulvae Plan Discussed exam findings today, recommended vulvar biopsies to rule out any abnormal changes of the skin including lichen sclerosus, other dermatological conditions, precancer, vulvar cancer. Counseled regarding anticipatory guidance for the biopsies. Patient to schedule appointment prior to leaving the office today, reports she is leaving to [place] for 6 months May 31 I would like to have her care completed here before traveling. The patient expressed understanding and agreement with the plan of care. All of her questions and concerns were addressed to the best of my ability. Total time I personally spent on visit and management today: ?15 minutes. Time spent included review of pertinent office notes in the electronic health record; review of laboratory and imaging results; review of personal family medical history; performing physical exam; discussing diagnosis and plan of care with the patient; documenting the encounter in the EMR. This note is constructed using voice recognition software. While every effort has been made to ensure accuracy, knockout machine operator errors may have been included. Coding Level of Care Code Est Pt Level 2 (03666) Est Pt Prev Care >65y(77438) Diagnoses Encounter for well woman exam with routine gynecological exam Z01.419 Vulvar itching L29.2
[2025-04-07 10:06] VITALS: BP 122/78; BMI 25.9
--- OUTSIDE RECORDS SUMMARY | 2025-04-07 12:06 | XMS_ITS | Patient Health Record ---
Author Organization [facility] Address [address] [place] [address] Care Team Providers Care Senior Air Director Name Role Phone Po Catalina APPLE Primary Care Provider Jr Storey [phone] Allergies Allergen (clinical drug ingredient) Drug/Non Drug [...] Problem Status W/U Status Risk Notes Problem 250525908 Encounter for screening for malignant neoplasm of colon (Z12.11) Active confirmed Problem 406865032 History of adenomatous polyp of colon (Z86.010) Active confirmed Problem Diverticular disease of colon (002531673) Diverticulosis of large intestine without perforation or abscess without bleeding (K57.30) Active confirmed Problem 061678159 Preprocedural examination (Z01.818) Active confirmed Plan Of Treatment Pending Test Test Name Order Date Pathology 12/25/2022 Future Test Test Name Order Date COLONOSCOPY 04/26/2017 COLONOSCOPY 04/19/2022 Insurance Providers Payer Name Payer Address Payer Phone Subscriber Number Group Number Insured Name Patient Relationship to Insured Coverage Start Date Coverage End Date [place] [address] [place] [address] [id number] SCOOTER DIA Self - patient is the insured Medical (General) History Medical History History ICD Code Anxiety GI bleed---melena--on Aleve--not hospita lized---approx 2009 Screening colonoscopy 11/2008 ---1 small tubular adenoma removed, diverticulosis, internal hemorrhoids Denies [place],DM,CVA,Lung disease,renal dise ase Arthritis in spine and ankles,knees wris t shoulders Colonoscopy in 05/2017 with a small tubular adenoma and hyperplastic polyp removed Surgical History Surgery Date(Month/Year)
== END 2025-04-07 11:39 | disposition home or self-care (01) ==
LOC: HO.HWS 10:01
PROVIDERS: PCP Internal Medicine; Visit Provider Advanced Practice Midwife
DX: L29.2 Pruritus vulvae (principal); Z01.419 Encounter for gynecological examination (general) (routine) without abnormal findings
CPT/HCPCS: 99213; 99459; G0101

== ENCOUNTER → 2025-04-07 10:01 | Outpatient (BNVA) | payer MEDICARE, SELFPAY | PROVIDERS: PCP Internal Medicine; Visit Provider Advanced Practice Midwife | DX: Z01.419 Encounter for gynecological examination (general) (routine) without abnormal findings (principal); L29.2 Pruritus vulvae | CPT/HCPCS: 99212; G0101 ==

== ENCOUNTER 2025-04-16 09:57 | Outpatient (AMB) | payer MEDICARE, SELFPAY ==
--- NOTE | 2025-04-16 10:17 | A.OFFVIS_ITS ---
Vital Signs 3 04/16/25 10:18 Height 5 ft 4 in Weight 151 lb BMI 25.9 BP 122/84 Intake Visit Reasons: skin biopsy Timber Harvester Operator: Timber Harvester Operator Present (Yanet) Allergies ibuprofen Allergy (Unknown, Verified 04/16/25 10:18) Unknown naproxen Allergy (Unknown, Verified 04/16/25 10:18) Unknown 12 Hour Nasal Relief [place] Allergy (Unknown, Uncoded 03/03/25 10:07) Unknown Voltaren Allergy (Unknown, Uncoded 03/03/25 10:07) Unknown HPI Comments Details: Patient is here for a skin biopsy due to history of chronic pruritus. Prior examination noted vulvar changes consistent with lichen sclerosus including excoriated patches. She reports using Replens externally and feels it seems to help, additionally has tried Dezmasil. [facility] Medical History Osteoarthritis Tinnitus Hypertriglyceridemia Elevated blood sugar Leg swelling Hypercholesterolemia Tubular adenoma of colon Annual physical exam Osteopenia Breast cancer screening by mammogram Anxiety and depression Atrophic vaginitis History of GI bleed Allergic rhinitis Surgical History No pertinent past surgical history Family History Father Myocardial infarct Mother CVA (cerebral vascular accident), Onset Age: 82 Social History Household Members Other:: Housing: House Alcohol intake: current Alcohol intake frequency: a few times a week Comment: once drink 5x a week Patient Tobacco Use Status: Former Tobacco user Tobacco use type: Cigarette Years Smoked: stopped 1979 e-Cigarette/Vaping Use: Never Used Second Hand Smoke Exposure: No service: No Current occupational status: retired Current occupational exposures/hazards: No Sexual orientation: Straight/Heterosexual Gender identity: Female Cognitive needs: No Hearing needs: No Vision needs: No Physical Exam Vital Signs: Last Vital Signs BP 122/84 04/16/25 10:18 BMI result Body Mass Index 25.9 Other: External inspection only hyperpigmentation, lichenification, scattered skin trauma similar to scratching pace. Female genitals images: 2 1. Upper right labial minora biopsy 2. Left mid labia minora biopsy Office Procedures Skin Biopsy Details: Vulvar Biopsy: Preop Diagnosis: Vulvar biopsy. The patient was consented for a vulvar skin biopsy procedure today. The purpose of the procedure is to rule out any skin abnormalities in the area of concern(s) including: SHAY, or skin conditions such as lichen sclerosis. All the risks and benefits were reviewed. The risk of the procedure including: pain, bleeding, swelling, bruising, injury to nerves blood supply, and surrounding tissue, scarring, and permanent skin discoloration. All of her questions and concerns were addressed to the best of my ability and shared decision making. She is agreeable to the plan of care. The patient was placed in the dosal lithotomy position. Using aseptic technique for the procedure the biopsy area was cleansed and prepped with Betadine solution. The skin area was anesthetized with Lidocaine 1% using a 3cc syringe and a 25g needle, 0.5cc was injected perpendicular into the dermis at the biopsy site until elevation was noted. A Shave biopsy technique was utilized. The bleeding site was minimal and controlled by direct pressure for several seconds. Vaseline ointment and guaze dressing was applied to the biopsy site. The patient tolerated the procedure well and left the department in good condition. Post biopsies skin care: Keep the area clean and dry. Apply Vaseline to the area as directed for the 1st week. Wear loose clothing and avoid intimacy until well healed. Report any signs of infection: Fever flu-like symptom, increased pain, redness, any foul odor or pus discharge. Return to the office in 2 weeks for biopsy results. Call sooner if any concerns. All of her questions and concerns were addressed to the best of my ability and shared decision making. She is agreeable to the plan of care. This note is constructed using voice recognition software. While every effort has been made to ensure accuracy, marketing project specialist errors may have been included. Skin biopsy performed by: Joy Arzola Informed consent given: Yes Consent signed: Yes Type of Biopsy: shave Anesthesia: local Hemostasis: pressure Wound closure: secondary intention Patient tolerated procedure: well Complications: No Assessment & Plan Assessment & Plan (1) Pruritus of vulva: Code(s): L29.2 - Pruritus vulvae Plan See skin biopsy procedure notes. This note is constructed using voice recognition software. While every effort has been made to ensure accuracy, marketing project specialist errors may have been included. Orders: Orders 2 Surgical 04/16/25 L29.2 - Pruritus vulvae Coding Level of Care Code Procedure Only Diagnoses Pruritus of vulva L29.2
[2025-04-16 10:18] VITALS: BP 122/84; BMI 25.9
--- OUTSIDE RECORDS SUMMARY | 2025-04-16 11:11 | XMS_ITS | Patient Health Record ---
Author Organization [facility] Address [address] [place] [address] Care Team Providers Care Sql Server Developer Name Role Phone Po Catalina APPLE Primary Care Provider Jr Storey [phone] Allergies Allergen (clinical drug ingredient) Drug/Non Drug [...] Problem Status W/U Status Risk Notes Problem [id number] Encounter for screening for malignant neoplasm of colon (Z12.11) Active confirmed Problem 118038300 History of adenomatous polyp of colon (Z86.010) Active confirmed Problem Diverticular disease of colon (420981012) Diverticulosis of large intestine without perforation or abscess without bleeding (K57.30) Active confirmed Problem 051418150 Preprocedural examination (Z01.818) Active confirmed Plan Of Treatment Pending Test Test Name Order Date Pathology 12/25/2022 Future Test Test Name Order Date COLONOSCOPY 04/26/2017 COLONOSCOPY 04/19/2022 Insurance Providers Payer Name Payer Address Payer Phone Subscriber Number Group Number Insured Name Patient Relationship to Insured Coverage Start Date Coverage End Date [place]ARE [place] [address] [place] [address] [phone] [id number] SCOOTER DIA Self - patient is the insured Medical (General) History Medical History History ICD Code Anxiety GI bleed---melena--on Aleve--not hospita lized---approx 2009 Screening colonoscopy 11/2008 ---1 small tubular adenoma removed, diverticulosis, internal hemorrhoids Denies [place],DM,CVA,Lung disease,renal dise ase Arthritis in spine and ankles,knees wris t shoulders Colonoscopy in 05/2017 with a small tubular adenoma and hyperplastic polyp removed Surgical History Surgery Date(Month/Year)
== END 2025-04-16 11:19 | disposition home or self-care (01) ==
LOC: HO.HWS 09:57
PROVIDERS: Visit Provider Advanced Practice Midwife
DX: L29.2 Pruritus vulvae (principal)
CPT/HCPCS: 56605

== ENCOUNTER 2025-04-16 09:57 | Outpatient (REF) | payer MEDICARE, SELFPAY | END 2025-04-16 09:58 | disposition home or self-care (01) | LOC: HO.LNP 09:57 | PROVIDERS: Visit Provider Advanced Practice Midwife | DX: L29.2 Pruritus vulvae (principal) | CPT/HCPCS: 56605; 88305; 88312 ==

== ENCOUNTER 2025-04-23 13:22 | Outpatient (REF) | payer MEDICARE, SELFPAY | END 2025-04-23 13:23 | disposition home or self-care (01) | LOC: HO.MAMMO 13:22 | DX: Z12.31 Encounter for screening mammogram for malignant neoplasm of breast (principal) | CPT/HCPCS: 77063; 77067 ==

== ENCOUNTER → 2025-04-23 14:00 | Outpatient (BNV) | payer MEDICARE, SELFPAY | PROVIDERS: Visit Provider Radiology Body Imaging | DX: Z12.31 Encounter for screening mammogram for malignant neoplasm of breast (principal) | CPT/HCPCS: 77063; 77067 ==

== ENCOUNTER 2025-04-30 11:05 | Outpatient (AMB) | payer MEDICARE, SELFPAY ==
--- NOTE | 2025-04-30 11:35 | A.OFFVIS_ITS ---
Intake Visit Reasons: Skin check Bullet Swaging Machine Adjuster: Bullet Swaging Machine Adjuster Present (Yanet) Allergies ibuprofen Allergy (Unknown, Verified 04/16/25 10:18) Unknown naproxen Allergy (Unknown, Verified 04/16/25 10:18) Unknown 12 Hour Nasal Relief [place] Allergy (Unknown, Uncoded 03/03/25 10:07) Unknown Voltaren Allergy (Unknown, Uncoded 03/03/25 10:07) Unknown Is last menstrual period known: Yes HPI Comments Details: Patient is here today for a follow up on her vulvar biopsy results. She has intermittent pruritus and uses her medicine up to several days p.r.n.. She reports going to [place] for the winter leaving in May returning in November. [facility] Medical History (Updated 04/30/25 @ 12:03 by Joy Arzola CNM) Lichen sclerosus Osteoarthritis Tinnitus Hypertriglyceridemia Elevated blood sugar Leg swelling Hypercholesterolemia Tubular adenoma of colon Annual physical exam Osteopenia Breast cancer screening by mammogram Anxiety and depression Atrophic vaginitis History of GI bleed Allergic rhinitis Surgical History No pertinent past surgical history Family History Father Myocardial infarct Mother CVA (cerebral vascular accident), Onset Age: 82 Social History Household Members Other:: Housing: House Alcohol intake: current Alcohol intake frequency: a few times a week Comment: once drink 5x a week Patient Tobacco Use Status: Former Tobacco user Tobacco use type: Cigarette Years Smoked: stopped 1979 e-Cigarette/Vaping Use: Never Used Second Hand Smoke Exposure: No service: No Current occupational status: retired Current occupational exposures/hazards: No Sexual orientation: Straight/Heterosexual Gender identity: Female Cognitive needs: No Hearing needs: No Vision needs: No Review of Systems Const All systems reviewed & are unremarkable except as noted in HPI and below Endo Reports no additional complaints Physical Exam Const General: cooperative, healthy appearing and no acute distress Other: External inspection only: Biopsy sites well healed, vulvar hyperpigmentation present Psych Appearance: well kempt Attitude: cooperative Thought process: Normal thought process present Results Reviewed Results Reviewed: 4751 Name: Madie Lopez Age/Sex: 69/F Attending: Joy Arzola CNM : 1955 Submitted by: Joy Arzola CNM Copies to: Marilynn Michael PA-C MR #: [id number] Status: DEP REF Collected: 04/16/25 Location: [facility] Received: 04/17/25 Diagnosis A. Vulva, left labia minora, biopsy: Lichen sclerosus; no atypia or fungi identified. B. Vulva, right labia, biopsy: Lichen sclerosus; no atypia or fungi identified. Clinical History Pruritus of vulva Microscopic Description A, B. Microscopic sections reviewed. No fungi seen, supported by PAS stains (A and B). Material Received A. Vulvar bx left labia minora B. Vulvar bx right labia Gross Description Received in 2 parts. A. Received in formalin labeled ?left labia minora? is a fragment of hogan-white skin measuring 0.4 cm in greatest dimension which is wrapped in lens paper and entirely submitted for microscopic examination, 1 piece in cassette A. B. Received in formalin labeled ?right labia? is a fragment of hogan-white skin measuring 0.4 cm in greatest dimension which is wrapped in lens paper and entirely submitted for microscopic examination, 1 piece in cassette B. ([facility]) This case was reviewed intradepartmentally. Special studies ordered and performed: PAS stains on A and B Copies To Marilynn Michael PA-C [facility] [facility] [place] [address] [email or web address] Patient: Madie Lopez Age/Sex: 69/F MR#: [id number] Page 1 of 2 Assessment & Plan Assessment & Plan (1) Lichen sclerosus: Code(s): L90.0 - Lichen sclerosus et atrophicus Category: Medical Plan Discussed biopsy results findings- lichen sclerosus diagnosis. Counseled regarding lichen sclerosus. Treatment plan- corticosteroid, sparing use for sym ptoms, apply intermittently at bedtime. Long-term use for prevention of transition to vulvar cancer. The patient expressed understanding and agreement with the plan of care. All of her questions and concerns were addressed to the best of my ability. Skin check in 6 months when patient returns from [place]. This note is constructed using voice recognition software. While every effort has been made to ensure accuracy, surgical attendant errors may have been included. Medications: New clobetasol 0.05% not to be used with other topical cortisone cream in the area at the same time 1 g topical .twice weekly 45 grams 1RF 90 days Coding Level of Care Code Est Pt Level 3 (43366) Diagnoses Lichen sclerosus L90.0
--- OUTSIDE RECORDS SUMMARY | 2025-04-30 14:07 | XMS_ITS | Patient Health Record ---
Author Organization [facility] Address [address] [place] [address] Care Team Providers Care Eligibility Counselor Name Role Phone Catalina Russo MD Primary Care Provider Jr Storey [phone] Allergies Allergen (clinical drug ingredient) Drug/Non Drug [...] Problem Status W/U Status Risk Notes Problem Screening for malignant neoplasm of colon (489960984) Encounter for screening for malignant neoplasm of colon (Z12.11) Active confirmed Problem History of adenomatous polyp of colon (509610272) History of adenomatous polyp of colon (Z86.010) Active confirmed Problem Diverticular disease of colon (519694662) Diverticulosis of large intestine without perforation or abscess without bleeding (K57.30) Active confirmed Problem Preprocedural examination (721483634859961) Preprocedural examination (Z01.818) Active confirmed Plan Of Treatment Pending Test Test Name Order Date Pathology 12/25/2022 Future Test Test Name Order Date COLONOSCOPY 04/26/2017 COLONOSCOPY 04/19/2022 Insurance Providers Payer Name Payer Address Payer Phone Subscriber Number Group Number Insured Name Patient Relationship to Insured Coverage Start Date Coverage End Date [place] [address] [place] [address] [id number] SCOOTER DIA Self - patient is the insured Medical (General) History Medical History History ICD Code Anxiety GI bleed---melena--on Aleve--not hospita lized---approx 2009 Screening colonoscopy 11/2008 ---1 small tubular adenoma removed, diverticulosis, internal hemorrhoids Denies [place],DM,CVA,Lung disease,renal dise ase Arthritis in spine and ankles,knees wris t shoulders Colonoscopy in 05/2017 with a small tubular adenoma and hyperplastic polyp removed Surgical History Surgery Date(Month/Year)
== END 2025-04-30 12:18 | disposition home or self-care (01) ==
LOC: HO.HWS 11:05
PROVIDERS: Visit Provider Advanced Practice Midwife
DX: L90.0 Lichen sclerosus et atrophicus (principal)
CPT/HCPCS: 99213

== ENCOUNTER → 2025-04-30 11:05 | Outpatient (BNVA) | payer MEDICARE, SELFPAY | PROVIDERS: Visit Provider Advanced Practice Midwife | DX: L90.0 Lichen sclerosus et atrophicus (principal) | CPT/HCPCS: 99212 ==

== ENCOUNTER 2025-07-14 10:50 | Outpatient (AMB) | payer MEDICARE, SELFPAY ==
--- NOTE | 2025-07-14 10:52 | MHC.PC.OV ---
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 Required: No Accompanied by: Self / Same As Patient Allergies ibuprofen Allergy (Unknown, Verified 07/14/25 10:52) Unknown naproxen Allergy (Unknown, Verified 07/14/25 10:52) Unknown 12 Hour Nasal Relief [place] Allergy (Unknown, Uncoded 03/03/25 10:07) Unknown Voltaren Allergy (Unknown, Uncoded 03/03/25 10:07) Unknown Medication List - Last Reconciled 07/14/25 by Rodrigo Malik MD acetaminophen ER (Tylenol Arthritis Pain) 1,300 mg PO Q12H bupropion HCl XL 150 mg PO DAILY cholecalciferol (vitamin D3) 25 mcg PO DAILY clobetasol 0.05% 1 g topical .twice weekly 90 days fexofenadine (Cheryl Allergy) 180 mg PO DAILY magnesium glycinate mg PO multivitamin 1 tab PO .QOD Tobacco use date assessed: 07/14/25 Fall risk assessment: No Falls in past year Last assessed Fall Risk: 07/14/25 Dental Screening Dental Screen Date: 07/14/25 HPI HPI Comments History of Present Illness Details The patient is a 70-year-old female presenting with a sore throat that began on Sunday. She reports the sore throat feels scratchy and caused pain with swallowing. Ufko-bmj-vfaqmvn treatments, including Chloraseptic spray and Mucinex sore throat drops, have not provided relief. Associated symptoms include a minimal cough, significant nasal congestion described as being like cement, and a sensation of dryness in her throat, nose, and lips. She experienced a fever of 100.4?F on Sunday, which resolved by Sunday. The patient felt tired and as if she were getting a cold for about a week before the sore throat fully developed. She states that the symptoms are not getting worse. The patient has no history of strep throat. [facility] Medical History (Updated 07/14/25 @ 12:13 by Rodrigo Malik MD) Lichen sclerosus Osteoarthritis Tinnitus Hypertriglyceridemia Elevated blood sugar Leg swelling Hypercholesterolemia Tubular adenoma of colon Annual physical exam Osteopenia Breast cancer screening by mammogram Anxiety and depression Atrophic vaginitis History of GI bleed Allergic rhinitis Surgical History No pertinent past surgical history Family History Father Myocardial infarct Mother CVA (cerebral vascular accident), Onset Age: 82 Social History Household Members Other:: Housing: House Alcohol intake: current Alcohol intake frequency: a few times a week Comment: once drink 5x a week Patient Tobacco Use Status: Former Tobacco user Tobacco use type: Cigarette Years Smoked: 1979 e-Cigarette/Vaping Use: Never Used Second Hand Smoke Exposure: No service: No Current occupational status: retired Current occupational exposures/hazards: No Sexual orientation: Straight/Heterosexual Gender identity: Female Cognitive needs: No Hearing needs: No Vision needs: No Questionnaire PHQ-9 Over the last 2 weeks, how often have you been bothered by any of the following problems? 1. Little interest or pleasure in doing things: not at all 2. Feeling down, depressed, or hopeless: not at all 3. Trouble falling or staying asleep, or sleeping too much: not at all 4. Feeling tired or having little energy: several days 5. Poor appetite or overeating: several days 6. Feeling bad about yourself - or that you are a failure or have let yourself or your family down: not at all 7. Trouble concentrating on things, such as reading the newspaper or watching television: not at all 8. Moving or speaking so slowly that other people could have noticed. Or the opposite - being so fidgety or restless that you have been moving around a lot more than usual: not at all 9. Thoughts that you would be better off or of hurting yourself in some way: not at all Total score: 2 Source: Developed by Drs. Jr Mascorro, Licha Chery, Cristobal Rhodes and colleagues, with an educational jun from [employer]. Thrive Questionnaire Date Thrive assessed: 07/13/25 I am a: Patient What is your living situation today?: I have a steady place to live Within the past 12 months, did the food you bought not last and you didn't have the money to get more?: Never true Within the past 12 months, did you worry whether your food would run out before you got money to buy more?: Never true Do you have trouble paying for medicines?: No Do you have trouble getting transportation to medical appointments?: No Do you have trouble paying your heating and electricity bill?: No Do you have trouble taking care of your child, family member or friend?: No Do you have trouble with day-to-day activities such as bathing, preparing meals, shopping, managing finances, etc.?: No Are you currently unemployed and looking for a job?: No Are you interested in more education?: No Please select the resources that you would like help with: None Currently or been in a relationship where the following occur: No concerns reported THRIVE Score: 0 AUDIT C Alcohol Use Questionnaire (AUDIT-C) 1. How often do you have a drink containing alcohol?: 2-3 times a week 2. How many drinks containing alcohol do you have on a typical day when you are drinking?: 1 or 2 3. How often do you have six or more drinks on one occasion?: Never Total Score: 3 SARITA-7 AMB Questionnaire SARITA-7 Date SARITA - 7 assessed: 03/03/25 Feeling nervous, anxious, or on edge: 1 = Several days Not being able to stop or control worryin = Several days Worrying too much about different things: 0 = Not at all Trouble relaxin = Not at all Being so restless that it is hard to sit still: 0 = Not at all Becoming easily annoyed or irritable: 1 = Several days Feeling afraid as if something awful might happen: 0 = Not at all Total SARITA-7 score (0-4 normal; 5-9 mild; 10-14 moderate; 15-21 severe): 3 Source: Developed by Drs. Jr Mascorro, Licha Chery, Cristobal Rhodes and colleagues, with an educational jun from [employer] Review of Systems Const Details: As per HPI. Physical exam (Primary Care) Vital Signs: Last Vital Signs Temp 97.6 F 07/14/25 10:53 Pulse 90 07/14/25 10:53 Resp 18 07/14/25 10:53 BP 134/68 07/14/25 10:53 Pulse Ox 98 07/14/25 10:53 Oxygen Delivery Method Room Air 07/14/25 10:53 BMI result Body Mass Index 24.9 Tobacco/Smoking Status: Tobacco use Status Tobacco use date assessed 07/14/25 07/14/25 10:56 Patient Tobacco Use Status Former Tobacco user 07/14/25 10:56 Tobacco use type Cigarette 07/14/25 10:56 e-Cigarette/Vaping Use Never Used 07/14/25 10:56 PHQ-9: PHQ-9 Score PHQ-9: Total score 2 07/14/25 11:10 Thrive Assessment: Date of Thrive Assessment Date Thrive assessed 07/13/25 07/14/25 10:56 Currently or been in a relationship where the following occur: No concerns reported Const Other: Pertinent findings are in BOLD GENERAL APPEARANCE NAD, activity normal for age, well developed/ well nourished, no cyanosis, pallor, or diaphoresis. EYES lids/conjunctiva normal. EARS/NOSE/THROAT Mucous membranes moist, nares normal, lips/teeth normal uvula midline without oral pharyngeal erythema, exudate or swelling TMs normal bilaterally. No lymphangitis/lymphedema. Mildly erythematous tonsils. HEAD/NECK normocephalic atraumatic, no facial trauma, neck is supple. RESPIRATORY respiratory effort normal, speaks in full sentences, no tripod position, no accessory muscle use. Lungs clear to auscultation without rhonchi, wheezes, rales CARDIAC Regular rate and rhythm, no edema. ABDOMINAL Soft, ND/NT. No evidence of fluid wave. No pulsatile masses on exam, rebound tenderness, Iglesias sign or pain over Mcburney's point. MUSCLES/EXTREMITIES No abnormal range of motion, no swelling. SKIN Warm, pink and dry. No rashes, dermatoses, petechiae or lesions. NEUROLOGICAL Speech is clear and appropriate. Normal level of consciousness. Gait and coordination are normal. 5/5 strength in all extremities. PSYCH Normal mood and affect. Judgement/competence is appropriate Results AMB Rapid Strep AMB Rapid Strep Negative Last Edit by JESS Wilson on 07/14/25 11:26 Coding Level of Care Code Est Pt Level 3 (74111) Diagnoses Sore throat J02.9 Time Spent (min) 20 Assessment & Plan Assessment & Plan (1) Sore throat: Code(s): J02.9 - Acute pharyngitis, unspecified Category: Medical Plan: - The patient presents with a sore throat, resolved fever, and nasal congestion, with an erythematous pharynx on exam. - A rapid strep test will be performed in the office to rule out streptococcal pharyngitis. Came back negative. - Azithromycin 500 mg once daily for 3 days. - The patient was advised to continue with mbfy-cqg-[id number] remedies for symptomatic relief. - She was instructed to let us know by Sunday if her symptoms do not improve, especially given her travel plans on Sunday. Plan I informed the patient that her throat appears red. We discussed the possibility of influenza, but agreed to defer testing as she is afebrile and does not have body aches. Strep throat swab completed and it was negative. Given her plans to travel, I instructed her to call by Sunday if she does not improve, at which point an alternative medication could be prescribed. Orders: Orders AMB Rapid Strep Screen Today Z13.9 - Encounter for screening, unspecified Medications: New azithromycin 500 mg PO DAILY 3 tabs 0RF 3 days
[2025-07-14 10:53] VITALS: BP 134/68; PULSE 90; RESP 18; TEMP 36.4; O2SAT 98; BMI 24.9
--- OUTSIDE RECORDS SUMMARY | 2025-07-14 14:41 | XMS_ITS | Patient Health Record ---
Author Organization [facility] Address [address] [place] [address] Care Team Providers [employer] Forms Name Role Phone Catalina Russo MD Primary Care Provider Jr Storey [phone] Allergies Allergen (clinical drug ingredient) Drug/Non Drug Allergy documented on EMR Reaction Allergy Type Onset Date Status ibuprofen ibuprofen (uncoded) Unknown Allergy Active Aleve Unknown Drug Allergy Active Reason For Referral No Information Medications Medication SIG (Take, Route, Frequency, Duration) Notes Start Date End Date Status Wellbutrin SR 150 MG Tablet Extended Release 12 Hour 1 tablet in the morning Orally Once a day Active Tylenol Arthritis Pain Active Immunizations Vaccine Route Administration Date Status Comme nts Influenza Unknown 04/19/2022 Administered Social History Tobacco Use: Social History Observation Description Date Details (start date - stop date) Former Smoker NA - NA Social History Drugs/Alcohol: Social Info Question Answer Notes Alcohol Screen Did you have a drink containing alcohol in the past year? Yes How often did you have a drink containing alcohol in the past year? 2 to 3 times a week (3 points) How many drinks did you have on a typical day when you were drinking in the past year? 1 or 2 drinks (0 point) How often did you have 6 or more drinks on one occasion in the past year? Never (0 point) Points 3 Interpretation Positive Tobacco Use: Social Info Question Answer Notes Tobacco Use/Smoking Patient is a former smoker How long has it been since you last smoked? > 10 years Additional Details Category Social Info Options Details Miscellaneous: Marital status: 2020 Occupation: Retired Section Notes: Nonsmoker; 2 glasses of wine 2 or 3 times a week Nonsmoker; 2 glasses of wine 2 or 3 times a week Problems Problem Type SNOMED Code ICD Code Onset Dates Problem Status W/U Status Risk Notes Problem Screening for malignant neoplasm of colon (546178900) Encounter for screening for malignant neoplasm of colon (Z12.11) Active confirmed Problem History of adenomatous polyp of colon (796565661) History of adenomatous polyp of colon (Z86.010) Active confirmed Problem Diverticular disease of colon (023710438) Diverticulosis of large intestine without perforation or abscess without bleeding (K57.30) Active confirmed Problem Preprocedural examination (722511192642986) Preprocedural examination (Z01.818) Active confirmed Plan Of Treatment Pending Test Test Name Order Date Pathology 12/25/2022 Future Test Test Name Order Date COLONOSCOPY 04/26/2017 COLONOSCOPY 04/19/2022 Insurance Providers Payer Name Payer Address Payer Phone Subscriber Number Group Number Insured Name Patient Relationship to Insured Coverage Start Date Coverage End Date [place]ARE [place] [address] [place] [address] [id number] [employer] DIA Self - patient is the insured Medical (General) History Medical History History ICD Code Anxiety GI bleed---melena--on Aleve--not hospita lized---approx 2009 Screening colonoscopy 11/2008 ---1 small tubular adenoma removed, diverticulosis, internal hemorrhoids Denies MO,DM,CVA,Lung disease,renal dise ase Arthritis in spine and ankles,knees wris t shoulders Colonoscopy in 05/2017 with a small tubular adenoma and hyperplastic polyp removed Surgical History Surgery Date(Month/Year)
== END 2025-07-14 11:21 | disposition home or self-care (01) ==
LOC: HO.HMCH 10:51
PROVIDERS: Visit Provider Internal Medicine
DX: Z13.9 Encounter for screening, unspecified (principal); J02.9 Acute pharyngitis, unspecified

== ENCOUNTER → 2025-07-14 10:50 | Outpatient (BNVA) | payer MEDICARE, SELFPAY | PROVIDERS: Visit Provider Internal Medicine | DX: J02.9 Acute pharyngitis, unspecified (principal); Z87.891 Personal history of nicotine dependence | CPT/HCPCS: 87880; 99212 ==